=== PATIENT | female | born 1980 | race Caucasian/White ===

== ENCOUNTER 2017-03-19 03:09 | Day surgery (SDC) | payer SELFPAY ==
[~2017-03-19] VITALS: Ht 170.2 cm; Wt 104.3 kg
[~2017-03-19 03:09] MED LIST: AC500T; HYDR1TAB PO; IBP800T PO; MEPE50TA; METH4TAB PO; NITR100C3 PO; OXYC-12 PO
[2017-03-19] MEDS ORDERED: ALPR0.5T7 (03:31)
[2017-03-19] MEDS ORDERED: Naproxen (03:31)
[2017-03-19] MEDS ORDERED: Cymbalta (03:31)
[2017-03-19] MEDS ORDERED: Buspar (03:31)
[2017-03-19] MEDS ORDERED: NS IV 1000 ML 1,000 ML IV ONE (03:33)
[2017-03-19 03:39] LABS: BASOPHILS # (AUTO) 0.1 10^3/uL (0.0-0.1); BASOPHILS % (AUTO) 0 % (0-10); EOSINOPHILS # (AUTO) 0.6 10^3/uL (0.0-0.3); EOSINOPHILS % (AUTO) 4 % (0-10); LYMPHOCYTES # (AUTO) 1.7 X 10^3 (1.0-4.0); LYMPHOCYTES % (AUTO) 10 % (12-44); MEAN CORPUSCULAR HEMOGLOBIN 28 PG (25-34); MEAN CORPUSCULAR HGB CONC 33 G/DL (32-36); MEAN CORPUSCULAR VOLUME 84 FL (80-99); MEAN PLATELET VOLUME 11.3 FL (7.4-10.4); MONOCYTES # (AUTO) 1.2 X 10^3 (0.0-1.0); MONOCYTES % (AUTO) 7 % (0-12); NEUTROPHILS # (AUTO) 13.4 X 10^3 (1.8-7.8); NEUTROPHILS % (AUTO) 79 % (42-75); PLATELET COUNT 248 10^3/uL (130-400); RED BLOOD COUNT 4.87 10^6/uL (4.35-5.85); WHITE BLOOD COUNT 16.9 10^3/uL (4.3-11.0)
[2017-03-19] MEDS ORDERED: ONDANSETRON 4 MG/2 ML (SDV) Z0FRAN IVP ONE (03:45)
[2017-03-19] MEDS ORDERED: fentaNYL INJECTION 100 MCG/2 ML AMP IVP ONE ×2 (03:45→04:15)
[2017-03-19 03:58] LABS: ALANINE AMINOTRANSFERASE 20 U/L (0-55); ALBUMIN 3.7 G/DL (3.2-4.5); ANION GAP 10 MMOL/L (5-14); ASPARTATE AMINO TRANSFERASE 14 U/L (5-34); BILIRUBIN,TOTAL 0.1 MG/DL (0.1-1.0); BLOOD UREA NITROGEN 16 MG/DL (7-18); BUN/CREATININE RATIO 22; CALCIUM 9.2 MG/DL (8.5-10.1); CARBON DIOXIDE 20 MMOL/L (21-32); CHLORIDE 108 MMOL/L (98-107); CREATININE SERUM 0.74 MG/DL (0.60-1.30); GFR ESTIMATED > 60; GLUCOSE 105 MG/DL (70-105); LIPASE 27 U/L (8-78); POTASSIUM 4.2 MMOL/L (3.6-5.0); SODIUM 138 MMOL/L (135-145)
[2017-03-19 03:59] LABS: ANISOCYTOSIS SLIGHT; BAND NEUTROPHILS 2 %; BASOPHILS % (MANUAL) 0 %; EOSINOPHILS % (MANUAL) 2 %; LYMPHOCYTES % (MANUAL) 8 %; NEUTROPHILS % (MANUAL) 78 %; REACTIVE LYMPHOCYTES 6 %
--- NOTE | 2017-03-19 04:08 | ED Abdominal Pain ---
General Chief Complaint: Abdominal/GI Problems Stated Complaint: AB PAIN Nursing Triage Note: Amb to ED accompanied by . Pt c/o severe abd pain. Pain after lunch time Monday that worsened after a meal. [place] hx of constipation with opiod drug use Sepsis Screen: No Definite Risk Source of Information: Patient Exam Limitations: No Limitations History of Present Illness Time Seen By Provider: 03:20 Initial Comments This 36-year-old woman presents to the emergency room with complaints of central abdominal pressure that started yesterday morning. This is associated with nausea and a sensation of bloating. She has a history of intermittent constipation related to narcotic use. She reports having a small bowel movement today that was hard luke. She has had subjective fever as well. She took a laxative and a medication for opioid-induced constipation earlier today without benefit. Allergies and Home Medications Allergies Coded Allergies: Penicillins (Verified Allergy, Unknown, 11/25/09) Home Medications Alprazolam 0.5 Mg Tablet, #90 (Reported) Hydrocodone Bit/Acetaminophen 1 Each Tablet, 1 EACH PO Q4HR PRN, #20 Ref 0 Prescribed by: MILDRED ORO MD on 12/30/09 1750 [Buspar] , (Reported) [Cymbalta] , (Reported) [Naproxen] , (Reported) Review of Systems Constitutional: see HPI EENTM: No Symptoms Reported Respiratory: No Symptoms Reported Cardiovascular: No Symptoms Reported Gastrointestinal: See HPI Genitourinary: No Symptoms Reported Musculoskeletal: no symptoms reported Skin: no symptoms reported Psychiatric/Neurological: No Symptoms Reported Endocrine: No Symptoms Reported Hematologic/Lymphatic: No Symptoms Reported Past Jskknjp-Yvsbbe-Dqftpn Hx Patient Social History Alcohol Use: Denies Use Recreational Drug Use: No Smoking Status: Current Someday Smoker Type Used: Cigarettes Recent Foreign Travel: No Contact w/Someone Who Travel: No Recent Infectious Disease Expo: No Recent Hopitalizations: No Seasonal Allergies Seasonal Allergies: No Surgeries HX Surgeries: Yes (wisdom teeth removed) Respiratory Hx Respiratory Disorders: Yes Respiratory Disorders: Asthma Cardiovascular Hx Cardiac Disorders: No Neurological Hx Neurological Disorders: No Reproductive System Hx Reproductive Disorders: No Genitourinary Hx Genitourinary Disorders: No Gastrointestinal Hx Gastrointestinal Disorders: No Musculoskeletal Hx Musculoskeletal Disorders: Yes Musculoskeletal Disorders: Chronic Back Pain Endocrine Hx Endocrine Disorders: No HEENT HX ENT Disorders: No Cancer Hx Cancer: No Psychosocial Hx Psychiatric Problems: Yes Behavioral Health Disorders: Anxiety, Depression Blood Transfusions Hx Blood Disorders: Yes Physical Exam Vital Signs VS - Last 72 Hours, by Label 03/19/17 03:13 Temp 97.6 Pulse 70 Resp 20 B/P (MAP) 142/83 O2 Delivery Room Air Capillary Refill : Less Than 3 Seconds General Appearance: WD/WN, moderate distress HEENT: PERRL/EOMI, normal ENT inspection Respiratory: lungs clear, normal breath sounds, no respiratory distress, no accessory muscle use Cardiovascular: regular rate, rhythm, no edema, no murmur Gastrointestinal: soft, abnormal bowel sounds (decreased), tenderness (diffuse but more intense in the central abdomen) Extremities: normal inspection, no pedal edema Neurologic/Psychiatric: senior education specialist II-XII nml as tested, no motor/sensory deficits, alert, normal mood/affect, oriented x 3 Skin: normal color, warm/dry Progress/Results/Core Measures Results/Orders Lab Results Laboratory Tests Test 03/19/17 03:20 03/19/17 04:44 Range/Units White Blood Count 16.9 H 4.3-11.0 10^3/uL Red Blood Count 4.87 4.35-5.85 10^6/uL Hemoglobin 13.6 11.5-16.0 G/DL Hematocrit 41 35-52 % Mean Corpuscular Volume 84 80-99 FL Mean Corpuscular Hemoglobin 28 25-34 PG Mean Corpuscular Hemoglobin Concent 33 32-36 G/DL Red Cell Distribution Width 15.0 H 10.0-14.5 % Platelet Count 248 130-400 10^3/uL Mean Platelet Volume 11.3 H 7.4-10.4 FL Neutrophils (%) (Auto) 79 H 42-75 % Lymphocytes (%) (Auto) 10 L 12-44 % Monocytes (%) (Auto) 7 0-12 % Eosinophils (%) (Auto) 4 0-10 % Basophils (%) (Auto) 0 0-10 % Neutrophils # (Auto) 13.4 H 1.8-7.8 X 10^3 Lymphocytes # (Auto) 1.7 1.0-4.0 X 10^3 Monocytes # (Auto) 1.2 H 0.0-1.0 X 10^3 Eosinophils # (Auto) 0.6 H 0.0-0.3 10^3/uL Basophils # (Auto) 0.1 0.0-0.1 10^3/uL Neutrophils % (Manual) 78 % Lymphocytes % (Manual) 8 % Monocytes % (Manual) 4 % Eosinophils % (Manual) 2 % Basophils % (Manual) 0 % Band Neutrophils 2 % Reactive Lymphocytes 6 % Anisocytosis SLIGHT Sodium Level 138 135-145 MMOL/L Potassium Level 4.2 3.6-5.0 MMOL/L Chloride Level 108 H 98-107 MMOL/L Carbon Dioxide Level 20 L 21-32 MMOL/L Anion Gap 10 5-14 MMOL/L Blood Urea Nitrogen 16 7-18 MG/DL Creatinine 0.74 0.60-1.30 MG/DL Estimat Glomerular Filtration Rate > 60 BUN/Creatinine Ratio 22 Glucose Level 105 70-105 MG/DL Calcium Level 9.2 8.5-10.1 MG/DL Total Bilirubin 0.1 0.1-1.0 MG/DL Aspartate Amino Transf (AST/SGOT) 14 5-34 U/L Alanine Aminotransferase (ALT/SGPT) 20 0-55 U/L Alkaline Phosphatase 65 40-136 U/L Total Protein 7.0 6.4-8.2 G/DL Albumin 3.7 3.2-4.5 G/DL Lipase 27 8-78 U/L Serum Test, Qualitative NEGATIVE NEGATIVE Urine Color YELLOW Urine Clarity CLEAR Urine pH 7 5-9 Urine Specific [place] 1.005 L 1.016-1.022 Urine Protein NEGATIVE NEGATIVE Urine Glucose (UA) NEGATIVE NEGATIVE Urine Ketones NEGATIVE NEGATIVE Urine Nitrite NEGATIVE NEGATIVE Urine Bilirubin NEGATIVE NEGATIVE Urine Urobilinogen NORMAL NORMAL MG/DL Urine Leukocyte Esterase NEGATIVE NEGATIVE Urine RBC (Auto) NEGATIVE NEGATIVE Urine RBC NONE /HPF Urine WBC RARE /HPF Urine Squamous Epithelial Cells 5-10 /HPF Urine Crystals NONE /LPF Urine Bacteria TRACE /HPF Urine Casts NONE /LPF Urine Mucus NEGATIVE /LPF Urine Culture Indicated NO My Orders Orders - BRAIN MACKENZIE MD Ua Culture If Indicated (03/19/17 03:21) Cbc With Automated Diff (03/19/17 03:31) Comprehensive Metabolic Panel (03/19/17 03:31) Hcg,Qualitative Serum (03/19/17 03:31) Lipase (03/19/17 03:31) Fentanyl Injection (Sublimaze Injection (03/19/17 03:45) Ondansetron Injection (Zofran Injectio (03/19/17 03:45) Saline Lock/Iv-Start (03/19/17 03:33) Ns Iv 1000 Ml (Sodium Chloride 0.9%) (03/19/17 03:33) Manual Differential (03/19/17 03:20) Ct Abdomen/Pelvis W (03/19/17 04:00) Fentanyl Injection (Sublimaze Injection (03/19/17 04:15) Iohexol Injection (Omnipaque 350 Mg/Ml 1 (03/19/17 04:30) Ns (Ivpb) (Sodium Chloride 0.9% Ivpb Bag (03/19/17 04:30) Levofloxacin 500 Mg/100 Ml Iv (Levaquin (03/19/17 05:15) Morphine Injection (Morphine Injection (03/19/17 05:15) Medications Given in ED Current Medications Medications Dose Ordered Sig/Brielle Route Start Time Stop Time Status Last Admin Dose Admin Fentanyl Citrate 50 mcg ONCE ONCE IVP 03/19/17 03:45 03/19/17 03:46 DC 03/19/17 03:41 50 MCG Fentanyl Citrate 50 mcg ONCE ONCE IVP 03/19/17 04:15 03/19/17 04:16 DC 03/19/17 04:08 50 MCG Iohexol 100 ml ONCE ONCE IV 03/19/17 04:30 03/19/17 04:31 DC 03/19/17 04:30 100 ML Ondansetron HCl 8 mg ONCE ONCE IVP 03/19/17 03:45 03/19/17 03:46 DC 03/19/17 03:41 8 MG Sodium Chloride 100 ml ONCE ONCE IV 03/19/17 04:30 03/19/17 04:31 DC 03/19/17 04:30 80 ML Sodium Chloride 1,000 ml @ 0 mls/hr Q0M ONCE IV 03/19/17 03:33 03/19/17 03:35 DC 03/19/17 03:41 999 MLS/HR Vital Signs/I&O Vital Sign - Last 12Hours 03/19/17 03:13 Temp 97.6 Pulse 70 Resp 20 B/P (MAP) 142/83 O2 Delivery Room Air Blood Pressure Mean: 102 Progress Note #1: Time: 04:03 Progress Note Patient received Zofran 8 mg and fentanyl 50 g by IV route. She still has some significant pain. A repeat dose of fentanyl was ordered. Nausea is now controlled. Labs have been reviewed and the significant leukocytosis was noted. CT of the abdomen and pelvis with contrast was ordered. Progress Note #2: Time: 05:00 Progress Note Appendicitis was identified on CT scan. Patient has rebounding pain. Morphine was ordered. Case was discussed with Dr. Ashby would like antibiotics started and patient admitted with anticipated appendectomy later this morning. Levaquin and Flagyl were selected as patient has a penicillin allergy. Diagnostic Imaging Diagonstic Imaging: CT Plain Films/CT/US/NM/MRI: abdomen, pelvis Comments CT abdomen and pelvis viewed by me. Stat rad report reviewed. Findings most consistent with acute appendicitis. Departure Communication Time/Spoke to Admitting Phy: 05:[address] Ashby Impression Impression: Primary Impression: Acute appendicitis Qualified Codes: K35.2 - Acute appendicitis with generalized peritonitis Additional Impressions: Abdominal pain Qualified Codes: R10.84 - Generalized abdominal pain Nausea Disposition: ADMITTED INPATIENT Condition: Improved Decision to Admit Reason: Admit from ER (General) Decision to Admit/Date: March 19, 2017 Time/Decision to Admit Time: 04:55 Departure-Patient Inst. Referrals: HUBERT MCKEON MD (PCP) Primary Care Physician LUCI CLIFTON MD (Family) Primary Care Physician BRAIN MACKENZIE MD March 19, 2017 04:08
[2017-03-19] MEDS ORDERED: NS 100 ML (IVPB) BAG IV ONE (04:30)
[2017-03-19] MEDS ORDERED: IOHEXOL 350 MG/ML 100 ML (OMNIPAQUE 350) VIAL IV ONE (04:30)
[2017-03-19 04:53] LABS: BILIRUBIN,URINE NEGATIVE (NEGATIVE); KETONES,URINE NEGATIVE (NEGATIVE); LEUKOCYTE ESTERASE ,URINE NEGATIVE (NEGATIVE); NITRITE,URINE NEGATIVE (NEGATIVE); PH,URINE 7 (5-9); PROTEIN,URINE NEGATIVE (NEGATIVE); UROBILINOGEN,URINE NORMAL (NORMAL)
[2017-03-19 04:59] LABS: WBC,URINE RARE /HPF
[2017-03-19] MEDS ORDERED: morphine INJ 10 MG/ML 1ML (SYR OR VIAL) IVP ONE (05:15)
[2017-03-19] MEDS ORDERED: LEVOFLOXACIN 500 MG/100 ML IV 100 ML IV ONE (05:15)
[2017-03-19] MEDS ORDERED: NS IV 1000 ML 1,000 ML ONE ×2 (06:19→08:01)
[2017-03-19] MEDS ORDERED: metroNIDAZOLE 500MG/100ML IVPB 100 ML ONE (06:19)
[2017-03-19 06:41] VITALS: BP 135/85
[2017-03-19] MEDS ORDERED: BUP/EPI 0.25% 1:200,000 (MARCAINE) 30 ML VIAL ONE (06:48)
--- NOTE | 2017-03-19 06:50 | Diagnostic Imaging Report ---
PROCEDURE: CT abdomen and pelvis with contrast. TECHNIQUE: Multiple contiguous axial images were obtained through the abdomen and pelvis after administration of intravenous contrast. INDICATION: Postprandial pain with no priors. The appendix arises off the medial aspect of the cecum and is oriented inferiorly. It is dilated and shows intraluminal appendicoliths. There is edema and infiltration of the periappendiceal fat. Its maximal transverse diameter is 13 mm. The appearance is consistent with acute appendicitis. Its distal tip abuts the right lateral wall of the normal-appearing urinary bladder. The liver, spleen, adrenals, pancreas, gallbladder, bile ducts all appeared normal. There is no bowel obstruction. There is no free air. No appreciable free fluid. No abscess. No other focal inflammatory process. No other acute findings. IMPRESSION: Dilated and inflamed appendix with intra-luminal appendicoliths. No free fluid or free air. No findings of a transmural perforation and no resultant bowel obstruction. Findings consistent with acute appendicitis. No other acute findings. I agree with the preliminary. Dictated by: Dictated on workstation # [id number]
[2017-03-19] MEDS ORDERED: morphine INJ 10 MG/ML 1ML (SYR OR VIAL) IVP PRN (07:00)
[2017-03-19] MEDS ORDERED: NS IV 1000 ML 1,000 ML IV SCH (07:00)
[2017-03-19] MEDS ORDERED: LIDOCAINE PF 2% 10 ML (XYLOCAINE) AMP ONE (07:07)
[2017-03-19] MEDS ORDERED: proPOfol 200 MG/20 ML (DIPRIVAN) VIAL IV ONE (07:07)
[2017-03-19] MEDS ORDERED: ROCURONIUM 50 MG/5 ML (ZEMURON) VIAL IV ONE (07:07)
[2017-03-19] MEDS ORDERED: fentaNYL INJECTION 100 MCG/2 ML AMP ONE (07:08)
[2017-03-19] MEDS ORDERED: SEVOFLURANE (ULTANE) 15 ML INHAL SOLN ONE ×2 (07:08→08:02)
[2017-03-19] MEDS ORDERED: LACTATED RINGERS 0 ML IV ONE (07:08)
[2017-03-19] MEDS ORDERED: MIDAZOLAM 2 MG/2 ML (VERSED) VIAL ONE (07:08)
--- NOTE | 2017-03-19 07:09 | History & Physicial ---
History of Present Illness History of Present Illness Reason for visit/HPI RLQ pain for 2 days; Exam and CT show acute appendicitis Date of Admission March 19, 2017 at 5:13 am I consulted on this patient on 03/19/17 07:04 Attending Physician Dolores Kelsey MD Admitting Physician Mj Yan MD Consult Allergies and Home Medications Allergies Coded Allergies: Penicillins (Verified Allergy, Unknown, 11/25/09) Home Medications Alprazolam 0.5 Mg Tablet, #90 (Reported) Hydrocodone Bit/Acetaminophen 1 Each Tablet, 1 EACH PO Q4HR PRN, #20 Ref 0 Prescribed by: MILDRED ORO MD on 12/30/09 1750 [Buspar] , (Reported) [Cymbalta] , (Reported) [Naproxen] , (Reported) Past Irzkofv-Noabiz-Obqzuc Hx Patient Social History Employed/Student: self-employed Alcohol Use: Denies Use Recreational Drug Use: No Smoking Status: Current Someday Smoker Type Used: Cigarettes Physical Abuse Screen: No Sexual Abuse: No Recent Foreign Travel: No Contact w/other who traveled: No Recent Hopitalizations: No Recent Infectious Disease Expo: No Seasonal Allergies Seasonal Allergies: Yes Surgeries HX Surgeries: Yes (wisdom teeth removed) Respiratory Hx Respiratory Disorders: Yes Cardiovascular Hx Cardiovascular Disorders: No Neurological Hx Neurological Disorders: No Reproductive System Hx Reproductive Disorders: No Sexually Transmitted Disease: No HIV/AIDS: No Genitourinary Hx Genitourinary Disorders: No Gastrointestinal Hx Gastrointestinal Disorders: No Musculoskeletal Hx Musculoskeletal Disorders: Yes Musculoskeletal Disorders: Chronic Back Pain Endocrine Hx Endocrine Disorders: No HEENT HX ENT Disorders: No Cancer Hx Cancer: No Psychosocial Hx Psychiatric Problems: Yes Behavioral Health Disorders: Anxiety, Depression Blood Transfusions Hx Blood Disorders: Yes Adverse Reaction to a Blood Tr: No Constitutional: malaise EENTM: no symptoms reported Respiratory: no symptoms reported Cardiovascular: no symptoms reported Gastrointestinal: RUQ, RLQ, abdominal pain (RLQ), loss of appetite, nausea Genitourinary: no symptoms reported : No Musculoskeletal: back pain Skin: no symptoms reported Psychiatric/Neurological: No Symptoms Reported Physical Exam Vital Signs Vital Sign - Last 12Hours 03/19/17 03/19/17 03:13 05:37 Temp 97.6 Pulse 70 Resp 20 B/P (MAP) 142/83 Pulse Ox 95 O2 Delivery Room Air Capillary Refill : Less Than 3 Seconds General Appearance: Mild Distress HEENT: TMs Normal Neck: Normal Inspection Respiratory: Lungs Clear Cardiovascular: Regular Rate, Rhythm Gastrointestinal: Tenderness Rectal: Deferred Back: Normal Inspection Extremity: Normal Capillary Refill Neurologic/Psychiatric: Alert, Oriented x3 Skin: Warm/Dry Comments Severe tenderness- RLQ Assessment/Plan Assessment and Plan Acute appendicitis, for laparoscopic appendectomy. Expected recovery, wound infection, intra-abdominal abscess etc discussed in detail.Willing to proceed Problems: Admission Diagnosis Acute appendicitis Clinical Quality Measures DVT/VTE Risk/Contraindication: Risk Factor Score Per Nursin RFS Level Per Nursing on Admit: 2=Moderate DOLORES KELSEY MD March 19, 2017 7:09 am
[2017-03-19] MEDS ORDERED: NICOTINE 21 MG (NICODERM) PATCH TD PRN (07:15)
[2017-03-19] MEDS ORDERED: CLINDAMYCIN INJECTION 900 MG in NS (IVPB) 50 ML IV ONE (07:15)
[2017-03-19] MEDS ORDERED: ONDANSETRON 4 MG/2 ML (SDV) Z0FRAN IV PRN ×2 (07:15→08:15)
[2017-03-19] MEDS ORDERED: morphine INJ 10 MG/ML 1ML (SYR OR VIAL) IV PRN (07:15)
[2017-03-19] MEDS ORDERED: metroNIDAZOLE 500MG/100ML IVPB 100 ML IV ONE (07:15)
[2017-03-19] MEDS: LACTATED RINGERS 1,000 ML IV PRN ×2 (07:21→09:03)
[2017-03-19] MEDS ORDERED: CLINDAMYCIN 600 MG/4ML (CLEOCIN) VIAL IV ONE (07:45)
[2017-03-19] MEDS ORDERED: GLYCOPYRROLATE 0.2 MG/ML (ROBINUL) 2 ML VIAL ONE (08:02)
[2017-03-19] MEDS ORDERED: ONDANSETRON 4 MG/2 ML (SDV) Z0FRAN ONE (08:02)
[2017-03-19] MEDS ORDERED: DEXAMETHASONE PF 10 MG/ML (DECADRON) VIAL ONE (08:02)
[2017-03-19] MEDS ORDERED: NEOSTIGMINE (BLOXIVERZ ) 1 MG/1ML 10 ML VIAL ONE (08:02)
[2017-03-19] MEDS ORDERED: KETOROLAC 30 MG/ML VIAL ONE (08:05)
--- NOTE | 2017-03-19 08:07 | Progress Note-Pre Operative ---
Pre-Operative Progress Note H&P Reviewed The H&P was reviewed, patient examined and no changes noted. Date H&P Reviewed: March 19, 2017 Time H&P Reviewed: 06:54 Pre-Operative Diagnosis: Acute appendicitis DOLORES KELSEY MD March 19, 2017 8:07 am
--- NOTE | 2017-03-19 08:07 | Progress Note-Post Operative ---
Post-Operative Progess Note Surgeon (s)/Sales Rep (s) Surgeon DOLORES KELSEY MD Sales Rep: Not applicable Pre-Operative Diagnosis Acute appendicitis Post-Operative Diagnosis Acute gangrenous appendicitis Procedure & Operative Findings Date of Procedure 03/19/17 Procedure Performed/Findings laparoscopic appendectomy Anesthesia Type Gen. Estimated Blood Loss Estimated blood loss (mL): Minimal Specimens/Packing Specimens Removed appendix DOLORES KELSEY MD March 19, 2017 8:07 am
[2017-03-19] MEDS ORDERED: HYDR-3812 PO (08:11)
--- NOTE | 2017-03-19 08:12 | Discharge Inst-Simple/Standard ---
Discharge Inst-Standard Discharge Medications New, Converted or Re-Newed RX: RX on Chart Patient Instructions/Follow Up Plan of Care/Instructions/FU: Dressings off in a.m. Incentive spirometry. Follow-up in a week Activity as Tolerated: Yes Discharge Diet: No Restrictions DOLORES KELSEY MD March 19, 2017 8:12 am
[2017-03-19] MEDS ORDERED: MEPERIDINE (DEMEROL) INJ 50 MG/ML ONE (08:13)
[2017-03-19] MEDS ORDERED: morphine INJ 10 MG/ML 1ML (SYR OR VIAL) ONE (08:13)
[2017-03-19] MEDS ORDERED: fentaNYL INJECTION 100 MCG/2 ML AMP IV PRN (08:15)
--- NOTE | 2017-03-19 08:40 | OPERATIVE REPORT ---
DATE OF SERVICE: 03/19/2017 PREOPERATIVE DIAGNOSIS: Acute appendicitis. POSTOPERATIVE DIAGNOSIS: Acute gangrenous appendicitis. OPERATION: Laparoscopic appendectomy. SURGEON: Dr. Kelsey. ANESTHESIA: General anesthesia. BLOOD LOSS: Minimal. FLUIDS: 1 L of crystalloids. TYPE OF WOUND: Type 3 (contaminated wound). INDICATIONS FOR PROCEDURE: The lady presented with features of acute appendicitis confirmed on CT scan. She was offered prompt laparoscopic appendectomy. Informed consent was obtained after reviewing the operating details and the complications of wound infection and intraabdominal abscess. DESCRIPTION OF PROCEDURE: She was placed supine on the operating room table and general anesthesia induced using an endotracheal tube, 600 mg of clindamycin and 500 mg of Flagyl were administered intravenously as prophylaxis against wound infection. Sequential compression devices were placed around her legs to minimize the risk of venous thrombosis. Abdomen was prepared and draped in the usual sterile manner. A supraumbilical incision was made and the linea alba incised vertically. A John cannula was placed and carbon dioxide insufflated to an intraabdominal pressure of 15 mmHg. Anatomy was visualized using a 30 degree laparoscope. Appendix was gangrenous and found in the retrocecal position, the tip extending along the lateral pelvic wall. Under direct view, I placed a 5 mm trocar over the right upper quadrant, followed by a 12 mm trocar over the left lower quadrant. The patient was then turned into Trendelenburg position with the right side tilted up. Mesoappendix was mobilized using Harmonic scalpel and the base of the appendix transected using an Endo-LUBNA vascular stapler. Hemostasis along the staple line was satisfactory. The area was then irrigated with warm saline and the appendix placed in an EndoCatch bag to be removed via the supraumbilical trocar site. The fascia over this incision was closed using #1 Vicryl. Skin was closed using 4-0 Vicryl in a subcuticular fashion. 0.25% Marcaine with epinephrine was infiltrated along the incisions, both preemptively and at the conclusion of the operation. She tolerated the procedure well, was extubated in the operating room and taken to the recovery room in a stable condition. [place], sponges, and instruments were correct at the end of the operation. Job ID: [id number] DocumentID: [id number] Dictated Date: 03/19/2017 08:05:24 Mangle Tender Cloth Date: 03/19/2017 08:39:41 Dictated By: DOLORES KELSEY MD MTDD
[2017-03-19 09:25] VITALS: BP 110/59
[2017-03-19] MEDS: LACTATED RINGERS 1,000 ML IV SCH ×2 (09:25→16:07)
[2017-03-19 12:00] VITALS: BP 106/51
[2017-03-19] MEDS ORDERED: metroNIDAZOLE 500 MG/100 ML IVPB (PRE-MIX) IV SCH (12:00)
[2017-03-19] MEDS: ceFAZolin 1 GM/NS 50 ML IVPB IV SCH ×4 (12:30→21:37)
[2017-03-19] MEDS: HYDROcodone/APAP 5 MG/325 MG (LORTAB) TAB PO PRN ×2 (12:32→20:14)
[2017-03-19] MEDS: metroNIDAZOLE 500MG/100ML IVPB 100 ML IV SCH ×2 (13:33→20:14)
[2017-03-19 16:09] VITALS: BP 128/71
[2017-03-19 19:33] VITALS: BP 123/60
[2017-03-19] MEDS: KETOROLAC 15 MG/ML VIAL IV SCH (21:37)
[2017-03-20] VITALS: BP 129/62
[2017-03-20 04:00] VITALS: BP 116/60
[2017-03-20] MEDS: KETOROLAC 15 MG/ML VIAL IV SCH (06:15)
[2017-03-20] MEDS: metroNIDAZOLE 500MG/100ML IVPB 100 ML IV SCH (06:15)
[2017-03-20] MEDS: ceFAZolin 1 GM/NS 50 ML IVPB IV SCH ×2 (07:05)
[2017-03-20 07:40] VITALS: BP 112/59
[2017-03-20] MEDS: HYDROcodone/APAP 5 MG/325 MG (LORTAB) TAB PO PRN (07:57)
[2017-03-20] MEDS ORDERED: NICOTINE PATCH REMOVAL TP SCH (09:00)
[2017-03-20] MEDS ORDERED: LEVOFLOXACIN 500 MG/D5W 100 ML (PRE-MIX) IV SCH (09:00)
--- NOTE | 2017-03-20 09:18 | Progress Note-Standard ---
Standard Progress Note Progress Notes/Assess & Plan Progress/Assessment & Plan 03/20/17:doing well. Discharge home. Final Diagnosis acute gangrenous appendicitis DOLORES KELSEY MD March 20, 2017 9:18 am
[2017-03-20 09:50] VITALS: BP 112/59
== END 2017-03-20 09:50 | disposition home or self-care (01) ==
LOC: EDUNIT# 03:09 → ER 03:11 → 4TH 05:13 → UNDOADMOB 05:13 → SDC 05:55 → 4TH 05:55 → ENPENDDIS 03-20 09:00 → UNDODISOB 03-20 09:50 → SDC 03-20 09:50
PROVIDERS: ATTEND Surgery
DX: K35.80 Unspecified acute appendicitis (principal); F17.210 Nicotine dependence, cigarettes, uncomplicated; F41.9 Anxiety disorder, unspecified; F32.9 Major depressive disorder, single episode, unspecified; J45.909 Unspecified asthma, uncomplicated; E66.9 Obesity, unspecified; Z68.36 Body mass index [BMI] 36.0-36.9, adult; Z79.899 Other long term (current) drug therapy
CPT/HCPCS: 36415; 74177; 80053; 81000; 83690; 84703; 85007; 85027; 87081; 88304; 94664; 96361; 96365; 96375

== ENCOUNTER 2018-07-04 21:14 | Emergency (ER) | payer SELFPAY ==
[~2018-07-04 21:14] MED LIST changes: +ACHD5005 PO; +ALPR0.5T7; +Buspar; +Cymbalta; +Naproxen
--- OUTSIDE RECORDS SUMMARY | 2018-07-04 21:19 | XMS REPORT ---
Author Author LYDIA SPENCE [facility] Address [address] [place] [address] Care Team Providers Care Medical Device Sales Name Role Phone TERRIE SPENCETA Unavailable PROBLEMS Type Condition ICD9-CM Code EXS03-CB Code Onset Dates Condition Status SNOMED Code Problem Morbid (severe) obesity due to excess calories E66.01 Active 180215257 Problem Primary insomnia F51.01 Active 4156817 Problem Major depressive disorder, single episode, moderate F32.1 Active 73671711 Problem Dysthymia F34.1 Active 47923306 ALLERGIES Substance Reaction Event Type Date Status Penicillin G Sodium Unknown Drug Allergy Apr, Active ENCOUNTERS Encounter Location Date Diagnosis [place] [id number] [place] [phone] May, Primary insomnia F51.01 and Major depressive disorder, single episode, moderate F32.1 [place] [id number] [place] [address] Apr, Major depressive disorder, single episode, moderate F32.1 [place] [id number] [place] [address] Mar, BMI 40.0-44.9, adult Z68.41 ; Major depressive disorder, single episode, moderate F32.1 ; Primary insomnia F51.01 ; Morbid (severe) obesity due to excess calories E66.01 and Encounter to establish care Z76.89 [place] [id number] [place] [address] Mar, Dysthymia F34.1 [place] [id number] [place] [address] February, Major depressive disorder, single episode, moderate F32.1 [place] [id number] [address] February, [facility] [address] [facility] [id number] [address] Jan, [facility] [address] [facility] [id number] [phone] Jan, Dysthymia F34.1 ; BMI 40.0-44.9, adult Z68.41 and Fatigue, unspecified type R53.83 [facility] [address] [facility] [id number] [address] Nov, Strain of lumbar paraspinous muscle, initial encounter S39.012A and BMI 40.0-44.9, adult Z68.41 IMMUNIZATIONS No Known Immunizations SOCIAL HISTORY Never Assessed REASON FOR VISIT Depression f/u-awoods PLAN OF CARE Activity Details Follow Up 6 Months Reason:depression VITAL SIGNS Height 67 in 2018 Weight 251.5 lbs 2018 Temperature 98.9 degrees Fahrenheit 2018 Heart Rate 67 bpm 2018 Respiratory Rate 18 2018 BMI 39.39 kg/m2 2018 Blood pressure systolic 118 mmHg 2018 Blood pressure diastolic 72 mmHg 2018 MEDICATIONS Medication Instructions Dosage Frequency Start Date End Date Duration Status Naproxen 250 MG Orally Twice a day 1 tablet with food or milk 12h Active Prozac 40 mg Orally Once a day 1 capsule in the morning 24h 30 days Active Trazodone HCl 50 MG Orally Once a day 1 tablet at bedtime as needed 24h Active RESULTS No Results PROCEDURES No Known procedures INSTRUCTIONS MEDICATIONS ADMINISTERED No Known Medications MEDICAL (GENERAL) HISTORY Type Description Date Medical History Anxiety Medical History Severe depression Surgical History appendectomy 02/2017
--- OUTSIDE RECORDS SUMMARY | 2018-07-04 21:19 | XMS REPORT ---
Author Author LESLEY ALVARADO Organization [facility] Address [address] [place] [address] Care Team Providers Care Raveler Name Role Phone LESLEY ALVARADO Unavailable PROBLEMS Type Condition ICD9-CM Code SSU08-SY Code Onset Dates Condition Status SNOMED Code Problem Morbid (severe) obesity due to excess calories E66.01 Active 226662085 Problem Primary insomnia F51.01 Active 7319974 Problem Major depressive disorder, single episode, moderate F32.1 Active 14765391 Problem Dysthymia F34.1 Active 99732300 ALLERGIES No Information ENCOUNTERS Encounter Location Date Diagnosis [place] [id number] [id number] [place] [address] Apr, Major depressive disorder, single episode, moderate F32.1 [facility] [id number] [place] [address] Mar, BMI 40.0-44.9, adult Z68.41 ; Major depressive disorder, single episode, moderate F32.1 ; Primary insomnia F51.01 ; Morbid (severe) obesity due to excess calories E66.01 and Encounter to establish care Z76.89 [place] [id number] [place] [address] Mar, Dysthymia F34.1 [facility] [id number] [place] [address] February, Major depressive disorder, single episode, moderate F32.1 [facility] [id number] [place] [address] February, [facility] [id number] [place] [phone] Jan, [place] [address] [place] [address] Jan, Dysthymia F34.1 ; BMI 40.0-44.9, adult Z68.41 and Fatigue, unspecified type R53.83 [facility] [address] [facility] [id number] [place] [address] Nov, Strain of lumbar paraspinous muscle, initial encounter S39.012A and BMI 40.0-44.9, adult Z68.41 IMMUNIZATIONS No Known Immunizations SOCIAL HISTORY Never Assessed REASON FOR VISIT Depression. PLAN OF CARE Activity Details Follow Up next available Reason:depresison VITAL SIGNS MEDICATIONS Medication Instructions Dosage Frequency Start Date End Date Duration Status Trazodone HCl 50 MG Orally Once a day 1 tablet at bedtime as needed 24h Active Prozac 20 mg Orally Once a day 1 capsule in the morning 24h Jan, 30 day(s) Unknown Naproxen 250 MG Orally Twice a day 1 tablet with food or milk 12h Active RESULTS No Results PROCEDURES Procedure Date Ordered Result Body Site Psych diagnostic evaluation, established patient February 20, 2018 INSTRUCTIONS MEDICATIONS ADMINISTERED No Known Medications MEDICAL (GENERAL) HISTORY Type Description Date Medical History Anxiety Medical History Severe depression Surgical History appendectomy 02/2017
--- OUTSIDE RECORDS SUMMARY | 2018-07-04 21:19 | XMS REPORT ---
Author Author LYDIA SPENCE [facility] Address [address] [place] [address] Care Team Providers Care Spring Repairer Helper Hand Name Role Phone TERRIE SPENCETA Unavailable PROBLEMS Type Condition ICD9-CM Code ECZ85-CY Code Onset Dates Condition Status SNOMED Code Problem Morbid (severe) obesity due to excess calories E66.01 Active 947100289 Problem Primary insomnia F51.01 Active 4940664 Problem Major depressive disorder, single episode, moderate F32.1 Active 10992973 Problem Dysthymia F34.1 Active 92297384 ALLERGIES Substance Reaction Event Type Date Status Penicillin G Sodium Unknown Drug Allergy Mar, Active ENCOUNTERS Encounter Location Date Diagnosis [place] [id number] [place] [address] May, Primary insomnia F51.01 and Major depressive disorder, single episode, moderate F32.1 [place] [id number] [place] [address] 35823[address] 6074 Apr, Major depressive disorder, single episode, moderate F32.1 [place] [id number] [place] [address]38[address] Mar, BMI 40.0-44.9, adult Z68.41 ; Major depressive disorder, single episode, moderate F32.1 ; Primary insomnia F51.01 ; Morbid (severe) obesity due to excess calories E66.01 and Encounter to establish care Z76.89 [place] [id number] [place] [address] 43628[address] 2761 Mar, Dysthymia F34.1 [place] [id number] [place] [address] 55037[address] 9071 February, Major depressive disorder, single episode, moderate F32.1 [place] [id number] [address] February, [facility] [address] [facility] [id number] [address] Jan, [facility] [address] [facility] [id number] [address] Jan, Dysthymia F34.1 ; BMI 40.0-44.9, adult Z68.41 and Fatigue, unspecified type R53.83 [facility] [address] [facility] [id number], [place] [address] Nov, Strain of lumbar paraspinous muscle, initial encounter S39.012A and BMI 40.0-44.9, adult Z68.41 IMMUNIZATIONS No Known Immunizations SOCIAL HISTORY Never Assessed REASON FOR VISIT Establish [facility], Would like to discuss weight loss options. PLAN OF CARE Activity Details Follow Up 4 Weeks/ needs WWE Reason:depression VITAL SIGNS Height 67 in 2018-03-30 Weight 259.2 lbs 2018-03-30 Temperature 98.5 degrees Fahrenheit 2018-03-30 Heart Rate 62 bpm 2018-03-30 Respiratory Rate 18 2018-03-30 BMI 40.59 kg/m2 2018-03-30 Blood pressure systolic 105 mmHg 2018-03-30 Blood pressure diastolic 65 mmHg 2018-03-30 MEDICATIONS Medication Instructions Dosage Frequency Start Date End Date Duration Status Prozac 40 MG Orally Once a day 1 capsule in the morning 24h Active Naproxen 250 MG Orally Twice a day 1 tablet with food or milk 12h Active Trazodone HCl 50 MG Orally Once a day 1 tablet at bedtime as needed 24h Active RESULTS No Results PROCEDURES No Known procedures INSTRUCTIONS MEDICATIONS ADMINISTERED No Known Medications MEDICAL (GENERAL) HISTORY Type Description Date Medical History Anxiety Medical History Severe depression Surgical History appendectomy 02/2017
--- OUTSIDE RECORDS SUMMARY | 2018-07-04 21:19 | XMS REPORT ---
Author Author LYDIA SPENCE [facility] Address [address] [place] [address] Care Team Providers Care Non Emergency Services Ambulance Driver Name Role Phone TERRIE SPENCETA Unavailable PROBLEMS Type Condition ICD9-CM Code KEG65-CB Code Onset Dates Condition Status SNOMED Code Problem Morbid (severe) obesity due to excess calories E66.01 Active 401059349 Problem Primary insomnia F51.01 Active 7649175 Problem Major depressive disorder, single episode, moderate F32.1 Active 86279307 Problem Dysthymia F34.1 Active 80393584 ALLERGIES Substance Reaction Event Type Date Status Penicillin G Sodium Unknown Drug Allergy Jan, Active ENCOUNTERS Encounter Location Date Diagnosis [place] [id number] [place] [address] Apr, Major depressive disorder, single episode, moderate F32.1 [place] [id number] [place] [address] 21470- 39[address] Mar, BMI 40.0-44.9, adult Z68.41 ; Major depressive disorder, single episode, moderate F32.1 ; Primary insomnia F51.01 ; Morbid (severe) obesity due to excess calories E66.01 and Encounter to establish care Z76.89 [facility] [id number] [place] [address] 55561- 9748 Mar, Dysthymia F34.1 [place] [id number] [place] [address] 54721- 28[address] February, Major depressive disorder, single episode, moderate F32.1 [place] [id number] [place] [address] 06086- 7767 February, [place] [id number] [place] [address] 76688- 8886 Jan, [facility] [address] [facility] [id number] [place] [address] Jan, Dysthymia F34.1 ; BMI 40.0-44.9, adult Z68.41 and Fatigue, unspecified type R53.83 [facility] [address] [facility] [id number] [place] [address] Nov, Strain of lumbar paraspinous muscle, initial encounter S39.012A and BMI 40.0-44.9, adult Z68.41 IMMUNIZATIONS No Known Immunizations SOCIAL HISTORY Never Assessed REASON FOR VISIT will discuss with provider, patient would not go into detail with waitstaff captain about what was going on, Pt states she overall doesnt feel well, no energy x2-3 weeks, feels like a lot of recent weight gain-Kanchan PLAN OF CARE Activity Details Follow Up 4 Weeks Reason:depression VITAL SIGNS Height 67 in 2018-02-19 Weight 263.2 lbs 2018-02-19 Temperature 99.0 degrees Fahrenheit 2018-02-19 Heart Rate 88 bpm 2018-02-19 Respiratory Rate 20 2018-02-19 Oximetry 97 % 2018-02-19 BMI 41.22 kg/m2 2018-02-19 Blood pressure systolic 118 mmHg 2018-02-19 Blood pressure diastolic 68 mmHg 2018-02-19 MEDICATIONS Medication Instructions Dosage Frequency Start Date End Date Duration Status Trazodone HCl 50 MG Orally Once a day 1 tablet at bedtime as needed 24h Active Naproxen 250 MG Orally Twice a day 1 tablet with food or milk 12h Active Prozac 20 mg Orally Once a day 1 capsule in the morning 24h Jan, 30 day(s) Active RESULTS No Results PROCEDURES Procedure Date Ordered Result Body Site COMPLETE CBC W/AUTO DIFF WBC February 19, 2018 COMPREHEN METABOLIC PANEL February 19, 2018 Hemoglobin Test Send Out 0 dollar February 19, 2018 ASSAY THYROID STIM HORMONE February 19, 2018 VENIPUNCT, ROUTINE* February 19, 2018 LIPID PANEL February 19, 2018 INSTRUCTIONS MEDICATIONS ADMINISTERED No Known Medications MEDICAL (GENERAL) HISTORY Type Description Date Medical History Anxiety Medical History Severe depression Surgical History appendectomy 02/2017
--- OUTSIDE RECORDS SUMMARY | 2018-07-04 21:19 | XMS REPORT ---
Author Author LYDIA SPENCE Organization [facility] Address [address] [place] [address] Care Team Providers Care Medicaid Billing Specialist Name Role Phone TERRIE SPENCETA Unavailable PROBLEMS Type Condition ICD9-CM Code KRK21-AR Code Onset Dates Condition Status SNOMED Code Problem Morbid (severe) obesity due to excess calories E66.01 Active 411214462 Problem Primary insomnia F51.01 Active 0627912 Problem Major depressive disorder, single episode, moderate F32.1 Active 53108426 Problem Dysthymia F34.1 Active 32318977 ALLERGIES No Information ENCOUNTERS Encounter Location Date Diagnosis [facility] [address] [place] [address] 93440- 1760 Apr, Major depressive disorder, single episode, moderate F32.1 [facility] [id number] [place] [address] 70236- 3441 Mar, BMI 40.0-44.9, adult Z68.41 ; Major depressive disorder, single episode, moderate F32.1 ; Primary insomnia F51.01 ; Morbid (severe) obesity due to excess calories E66.01 and Encounter to establish care Z76.89 [facility] [address] [place] [address] 92522- [address]90 Mar, Dysthymia F34.1 [facility] [id number] [place] [address] 40547- 55[address] February, Major depressive disorder, single episode, moderate F32.1 [facility] [id number] [place] [address] 60028- 7214 February, [facility] [id number], [place] [address] Jan, [place] [address] [place] [address] Jan, Dysthymia F34.1 ; BMI 40.0-44.9, adult Z68.41 and Fatigue, unspecified type R53.83 [facility] [address] [facility] [id number] [place] [address] Nov, Strain of lumbar paraspinous muscle, initial encounter S39.012A and BMI 40.0-44.9, adult Z68.41 IMMUNIZATIONS No Known Immunizations SOCIAL HISTORY Never Assessed REASON FOR VISIT Refill request PLAN OF CARE VITAL SIGNS MEDICATIONS Medication Instructions Dosage Frequency Start Date End Date Duration Status Prozac 20 mg Orally Once a day 1 capsule in the morning 24h Jan, 30 day(s) Active RESULTS No Results PROCEDURES No Known procedures INSTRUCTIONS MEDICATIONS ADMINISTERED No Known Medications MEDICAL (GENERAL) HISTORY Type Description Date Medical History Anxiety Medical History Severe depression Surgical History appendectomy 02/2017
--- OUTSIDE RECORDS SUMMARY | 2018-07-04 21:20 | XMS REPORT ---
Author Author LYDIA SPENCE Organization [facility] Address [address] [place] [address] Care Team Providers Care Air Traffic Control Specialist Name Role Phone TERRIE SPENCETA Unavailable PROBLEMS Type Condition ICD9-CM Code NCL61-KG Code Onset Dates Condition Status SNOMED Code Problem Morbid (severe) obesity due to excess calories E66.01 Active 576506448 Problem Primary insomnia F51.01 Active 2137464 Problem Major depressive disorder, single episode, moderate F32.1 Active 20644703 Problem Dysthymia F34.1 Active 69291867 ALLERGIES No Information ENCOUNTERS Encounter Location Date Diagnosis [facility] [address] [place] [address]476[address] Apr, Major depressive disorder, single episode, moderate F32.1 [facility] [id number] [place] [address] 08276- 37[address] Mar, BMI 40.0-44.9, adult Z68.41 ; Major depressive disorder, single episode, moderate F32.1 ; Primary insomnia F51.01 ; Morbid (severe) obesity due to excess calories E66.01 and Encounter to establish care Z76.89 [facility] [address] [place] [address] 21564- 6663 Mar, Dysthymia F34.1 [facility] [id number] [place] [address] 73144- [address] February, Major depressive disorder, single episode, moderate F32.1 [facility] [id number] [place] [address] 05834- [address] February, [facility] [id number] [address] Jan, [place] [address] [place] [address] Jan, Dysthymia F34.1 ; BMI 40.0-44.9, adult Z68.41 and Fatigue, unspecified type R53.83 [facility] [address] [facility] [id number] [place] [address] Nov, Strain of lumbar paraspinous muscle, initial encounter S39.012A and BMI 40.0-44.9, adult Z68.41 IMMUNIZATIONS No Known Immunizations SOCIAL HISTORY Never Assessed REASON FOR VISIT BH/AT phone response PLAN OF CARE VITAL SIGNS MEDICATIONS No Known Medications RESULTS No Results PROCEDURES No Known procedures INSTRUCTIONS MEDICATIONS ADMINISTERED No Known Medications MEDICAL (GENERAL) HISTORY Type Description Date Medical History Anxiety Medical History Severe depression Surgical History appendectomy 02/2017
--- OUTSIDE RECORDS SUMMARY | 2018-07-04 21:20 | XMS REPORT | Continuity of Care Document ---
Author Author [facility] Organization [facility] Address Unknown Phone Unavailable Allergies Active Description Code Type Severity Reaction Onset Reported/Identified Relationship to Patient Clinical Status Yes Penicillins [id number] Drug Allergy Unknown N/A 11/25/2009 Medications There is no data. Problems Date Dx Coded Attending Type Code Diagnosis Diagnosed By 04/07/2012 Ot 724.2 LUMBAGO 09/04/2014 HARVEY JACOBO MD Ot 724.2 03/20/2017 DOLORES KELSEY MD Ot E66.9 OBESITY, UNSPECIFIED 03/20/2017 DOLORES KELSEY MD Ot F17.210 NICOTINE DEPENDENCE, CIGARETTES, UNCOMPL 03/20/2017 DOLORES KELSEY MD Ot F32.9 MAJOR DEPRESSIVE DISORDER, SINGLE EPISOD 03/20/2017 DOLORES KELSEY MD Ot F41.9 ANXIETY DISORDER, UNSPECIFIED 03/20/2017 DOLORES KELSEY MD Ot J45.909 UNSPECIFIED ASTHMA, UNCOMPLICATED 03/20/2017 DOLORES KELSEY MD Ot K35.80 UNSPECIFIED ACUTE APPENDICITIS 03/20/2017 DOLORES KELSEY MD Ot Z68.36 BODY MASS INDEX (BMI) 36.0-36.9, ADULT 03/20/2017 DOLORES KELSEY MD Ot Z79.899 OTHER SNF (CURRENT) DRUG THERAPY 03/28/2017 DOLORES KELSEY MD Ot E66.9 OBESITY, UNSPECIFIED 03/28/2017 DOLORES KELSEY MD Ot F17.210 NICOTINE DEPENDENCE, CIGARETTES, UNCOMPL 03/28/2017 DOLORES KELSEY MD Ot F32.9 MAJOR DEPRESSIVE DISORDER, SINGLE EPISOD 03/28/2017 DOLORES KELSEY MD Ot F41.9 ANXIETY DISORDER, UNSPECIFIED 03/28/2017 DOLORES KELSEY MD Ot J45.909 UNSPECIFIED ASTHMA, UNCOMPLICATED 03/28/2017 DOLORES KELSEY MD Ot K35.80 UNSPECIFIED ACUTE APPENDICITIS 03/28/2017 LOW HOWARD, DOLORES Tripp Ot Z68.36 BODY MASS INDEX (BMI) 36.0-36.9, ADULT 03/28/2017 LOW HOWARD, DOLORES Tripp Ot Z79.899 OTHER SNF (CURRENT) DRUG THERAPY Procedures There is no data. Results Test Result Range Complete blood count (CBC) with automated white blood cell (WBC) differential - 03/19/17 03:20 Blood leukocytes automated count (number/volume) 16.9 10*3/uL 4.3-11.0 Blood erythrocytes automated count (number/volume) 4.87 10*6/uL 4.35-5.85 Venous blood hemoglobin measurement (mass/volume) 13.6 g/dL 11.5-16.0 Blood hematocrit (volume fraction) 41 % 35-52 Automated erythrocyte mean corpuscular volume 84 [foz_us] 80-99 Automated erythrocyte mean corpuscular hemoglobin (mass per erythrocyte) 28 pg 25-34 Automated erythrocyte mean corpuscular hemoglobin concentration measurement ( mass/volume) 33 g/dL 32-36 Automated erythrocyte distribution width ratio 15.0 % 10.0-14.5 Automated blood platelet count (count/volume) 248 10*3/uL 130-400 Automated blood platelet mean volume measurement 11.3 [foz_us] 7.4-10.4 Automated blood neutrophils/100 leukocytes 79 % 42-75 Automated blood lymphocytes/100 leukocytes 10 % 12-44 Blood monocytes/100 leukocytes 7 % 0-12 Automated blood eosinophils/100 leukocytes 4 % 0-10 Automated blood basophils/100 leukocytes 0 % 0-10 Blood neutrophils automated count (number/volume) 13.4 10*3 1.8-7.8 Blood lymphocytes automated count (number/volume) 1.7 10*3 1.0-4.0 Blood monocytes automated count (number/volume) 1.2 10*3 0.0-1.0 Automated eosinophil count 0.6 10*3/uL 0.0-0.3 Automated blood basophil count (count/volume) 0.1 10*3/uL 0.0-0.1 Serum or plasma choriogonadotropin ( test) detection - 03/19/17 03:20 Serum or plasma choriogonadotropin ( test) detection NEGATIVE NEGATIVE Blood manual differential performed detection - 03/19/17 03:20 Blood monocytes/100 leukocytes 4 % NRG Manual blood segmented neutrophils/100 leukocytes 78 % NRG Blood band neutrophils/100 leukocytes 2 % NRG Manual blood lymphocytes/100 leukocytes 8 % NRG Manual eosinophils/100 leukocytes in nose 2 % NRG Manual blood basophils/100 leukocytes 0 % NRG Blood lymphocytes variant/100 leukocytes 6 % NRG Blood anisocytosis detection by light microscopy SLIGHT NRG Comprehensive metabolic panel - 03/19/17 03:20 Serum or plasma sodium measurement (moles/volume) 138 mmol/L 135-145 Serum or plasma potassium measurement (moles/volume) 4.2 mmol/L 3.6-5.0 Serum or plasma chloride measurement (moles/volume) 108 mmol/L 98-107 Carbon dioxide 20 mmol/L 21-32 Serum or plasma anion gap determination (moles/volume) 10 mmol/L 5-14 Serum or plasma urea nitrogen measurement (mass/volume) 16 mg/dL 7-18 Serum or plasma creatinine measurement (mass/volume) 0.74 mg/dL 0.60-1.30 Serum or plasma urea nitrogen/creatinine mass ratio 22 NRG Serum or plasma creatinine measurement with calculation of estimated glomerular filtration rate > NRG Serum or plasma glucose measurement (mass/volume) 105 mg/dL 70-105 Serum or plasma calcium measurement (mass/volume) 9.2 mg/dL 8.5-10.1 Serum or plasma total bilirubin measurement (mass/volume) 0.1 mg/dL 0.1-1.0 Serum or plasma alkaline phosphatase measurement (enzymatic activity/volume) 65 U/L 40-136 Serum or plasma aspartate aminotransferase measurement (enzymatic activity/ volume) 14 U/L 5-34 Serum or plasma alanine aminotransferase measurement (enzymatic activity/volume ) 20 U/L 0-55 Serum or plasma protein measurement (mass/volume) 7.0 g/dL 6.4-8.2 Serum or plasma albumin measurement (mass/volume) 3.7 g/dL 3.2-4.5 Lipase - 03/19/17 03:20 Lipase 27 U/L 8-78 Complete urinalysis with reflex to culture - 03/19/17 04:44 Urine color determination YELLOW NRG Urine clarity determination CLEAR NRG Urine pH measurement by test strip 7 5-9 Specific gravity of urine by test strip 1.005 1.016- 1.022 Urine protein assay by test strip, semi-quantitative NEGATIVE NEGATIVE Urine glucose detection by automated test strip NEGATIVE NEGATIVE Erythrocytes detection in urine sediment by light microscopy NEGATIVE NEGATIVE Urine ketones detection by automated test strip NEGATIVE NEGATIVE Urine nitrite detection by test strip NEGATIVE NEGATIVE Urine total bilirubin detection by test strip NEGATIVE NEGATIVE Urine urobilinogen measurement by automated test strip (mass/volume) NORMAL NORMAL Urine leukocyte esterase detection by dipstick NEGATIVE NEGATIVE Automated urine sediment erythrocyte count by microscopy (number/high power field) NONE NRG Automated urine sediment leukocyte count by microscopy (number/high power field ) RARE NRG Bacteria detection in urine sediment by light microscopy TRACE NRG Squamous epithelial cells detection in urine sediment by light microscopy 5-10 NRG Crystals detection in urine sediment by light microscopy NONE NRG Casts detection in urine sediment by light microscopy NONE NRG Mucus detection in urine sediment by light microscopy NEGATIVE NRG Complete urinalysis with reflex to culture NO NRG Methicillin resistant Staphylococcus aureus (MRSA) screening culture - 06:32 Methicillin resistant Staphylococcus aureus (MRSA) screening culture NEG NRG Encounters ACCT No. Visit Date/Time Discharge Status Pt. Type Provider Facility Loc./Unit Complaint [id number] 03/19/2017 05:55:00 03/20/2017 09:50:00 DIS Outpatient LOW HOWARD, DOLORES Tripp [facility] SDC APPENDICITIS, NAUSEA [id number] 09/04/2014 03:33:00 09/04/2014 04:17:00 DIS Emergency HARVEY JACOBO MD [facility] ER [id number] 07/04/2018 21:15:00 ACT Emergency JOSE NG DO [facility] ER L EAR INFECTION [id number] 04/07/2012 08:47:00 Document Registration [id number] 09:20:00 2018 23:59:59 CLS Outpatient HARSHA PERRIN [facility]
--- OUTSIDE RECORDS SUMMARY | 2018-07-04 21:20 | XMS REPORT ---
Author Author LYDIA SPENCE Organization [facility] Address [address] [place] [address] Care Team Providers Care Prism Inspector Name Role Phone TERRIE SPENCETA Unavailable PROBLEMS Type Condition ICD9-CM Code YRF82-CG Code Onset Dates Condition Status SNOMED Code Problem Morbid (severe) obesity due to excess calories E66.01 Active 718118916 Problem Primary insomnia F51.01 Active 8291063 Problem Major depressive disorder, single episode, moderate F32.1 Active 58634951 Problem Dysthymia F34.1 Active 65954415 ALLERGIES No Information ENCOUNTERS Encounter Location Date Diagnosis [facility] [address] [place] [address]99- [address] Apr, Major depressive disorder, single episode, moderate F32.1 [facility] [id number] [place] [address] 53170- 6[address] Mar, BMI 40.0-44.9, adult Z68.41 ; Major depressive disorder, single episode, moderate F32.1 ; Primary insomnia F51.01 ; Morbid (severe) obesity due to excess calories E66.01 and Encounter to establish care Z76.89 [facility] [address] [place] [address]45- [address] Mar, Dysthymia F34.1 [facility] [id number] [place] [address] 43130- [address] February, Major depressive disorder, single episode, moderate F32.1 [facility] [id number] [place] [address] 43[address]- [address] February, [facility] [id number], [place] [address] Jan, [place] [address] [place] [address] Jan, Dysthymia F34.1 ; BMI 40.0-44.9, adult Z68.41 and Fatigue, unspecified type R53.83 [facility] [address] [facility] [id number] [place] [address] Nov, Strain of lumbar paraspinous muscle, initial encounter S39.012A and BMI 40.0-44.9, adult Z68.41 IMMUNIZATIONS No Known Immunizations SOCIAL HISTORY Never Assessed REASON FOR VISIT Verify Medications PLAN OF CARE VITAL SIGNS MEDICATIONS Medication Instructions Dosage Frequency Start Date End Date Duration Status Naproxen 250 MG Orally Twice a day 1 tablet with food or milk 12h Active Prozac 20 mg Orally Once a day 1 capsule in the morning 24h Jan, 30 day(s) Active Trazodone HCl 50 MG Orally Once a day 1 tablet at bedtime as needed 24h Active RESULTS No Results PROCEDURES No Known procedures INSTRUCTIONS MEDICATIONS ADMINISTERED No Known Medications MEDICAL (GENERAL) HISTORY Type Description Date Medical History Anxiety Medical History Severe depression Surgical History appendectomy 02/2017
== END 2018-07-04 21:47 | disposition left against medical advice (07) ==
LOC: EDUNIT# 21:14 → ER 21:15
DX: H66.92 Otitis media, unspecified, left ear (principal)

== ENCOUNTER 2018-10-25 12:23 | Emergency (ER) | payer SELFPAY, OTHER | END 2018-10-25 14:09 | disposition home or self-care (01) | LOC: ER 12:23 ==

== ENCOUNTER 2019-08-30 14:35 | Emergency (ER) | payer SELFPAY ==
[~2019-08-30] VITALS: Ht 170.1 cm; Wt 90.9 kg
[~2019-08-30 14:35] MED LIST changes: +AZIT250T PO; +D-ME473S38 PO
[2019-08-30 14:56] LABS: BASOPHILS # (AUTO) 0.1 10^3/uL (0.0-0.1); BASOPHILS % (AUTO) 1 % (0-10); EOSINOPHILS # (AUTO) 0.3 10^3/uL (0.0-0.3); EOSINOPHILS % (AUTO) 3 % (0-10); HEMATOCRIT 43 % (35-52); HEMOGLOBIN 14.1 G/DL (11.5-16.0); LYMPHOCYTES # (AUTO) 2.3 X 10^3 (1.0-4.0); LYMPHOCYTES % (AUTO) 26 % (12-44); MEAN CORPUSCULAR HEMOGLOBIN 28 PG (25-34); MEAN CORPUSCULAR HGB CONC 33 G/DL (32-36); MEAN CORPUSCULAR VOLUME 83 FL (80-99); MEAN PLATELET VOLUME 10.2 FL (7.4-10.4); MONOCYTES # (AUTO) 0.5 X 10^3 (0.0-1.0); MONOCYTES % (AUTO) 6 % (0-12); NEUTROPHILS # (AUTO) 5.7 X 10^3 (1.8-7.8); NEUTROPHILS % (AUTO) 65 % (42-75); PLATELET COUNT 282 10^3/uL (130-400); RED CELL DISTRIBUTION WIDTH 15.6 % (10.0-14.5); WHITE BLOOD COUNT 8.8 10^3/uL (4.3-11.0)
--- NOTE | 2019-08-30 15:13 | Diagnostic Imaging Report ---
INDICATION: Headache and visual changes. TECHNIQUE: Multiple contiguous axial images were obtained through the brain without the use of intravenous contrast. Auto Exposure Controls were utilized during the CT exam to meet ALARA standards for radiation dose reduction. EXAMINATION: Noncontrast brain CT was performed. COMPARISON: There is no prior study for comparison. FINDINGS: There are no extra-axial fluid collections. No intracranial hemorrhage. No intracranial mass or mass effect. No midline shift. The ventricles are normal in size and position. There are no focal parenchymal abnormalities in the brain. Calvarial windows are unremarkable. IMPRESSION: Negative noncontrast brain CT. Dictated by: Dictated on workstation # [id number]
[2019-08-30 15:16] LABS: ERYTHROCYTE SEDIMENTATION RATE 12 MM/HR (0-20)
[2019-08-30 15:20] LABS: ALANINE AMINOTRANSFERASE 13 U/L (0-55); ALBUMIN 4.3 GM/DL (3.2-4.5); ALKALINE PHOSPHATASE 73 U/L (40-136); BILIRUBIN,TOTAL 0.4 MG/DL (0.1-1.0); BUN/CREATININE RATIO 10; CALCIUM 9.4 MG/DL (8.5-10.1); CARBON DIOXIDE 20 MMOL/L (21-32); CHLORIDE 107 MMOL/L (98-107); GFR ESTIMATED > 60; GLUCOSE 85 MG/DL (70-105); POTASSIUM 3.7 MMOL/L (3.6-5.0); SODIUM 139 MMOL/L (135-145); TOTAL PROTEIN 7.3 GM/DL (6.4-8.2)
--- NOTE | 2019-08-30 15:22 | ED Headache ---
General Chief Complaint: Head/Cervical Problems Stated Complaint: FAINTING;HEAD PAIN;BLURRED VISION Nursing Triage Note: PT TO RM 7 BY WHEELCHAIR WITH COMPLAINT OF HEADACHE. STATES HEADACHE WAS SUDDEN ONSET AT HOME WHILE MAKING T SHIRTS. STATES STARTED AROUND 1315. STATES THE PAIN IS A CONSTANT POUNDING. Nursing Sepsis Screen: No Definite Risk Source: patient, family History of Present Illness Date Seen by Provider: Aug 30, 2019 Time Seen by Provider: 14:40 Initial Comments 39-year-old female presents with a headache. 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 She has a constant pounding. She has some blurred vision. She denies any neck pain, no fevers or chills. She does have some mild nausea. Patient reports that caused her to faint. No urinary symptoms no vomiting, diarrhea or other systemic complaints Allergies and Home Medications Allergies Coded Allergies: Penicillins (Verified Allergy, Unknown, 11/25/09) Home Medications Azithromycin 250 Mg Tablet, 250 MG PO UD TAKE 2 TABLETS TODAY, THEN TAKE 1 TABLET DAILY FOR 4 MORE DAYS Prescribed by: CHARLI BOOTH on 10/25/18 1408 Hydrocodone Bit/Acetaminophen 1 Each Tablet, 1 EACH PO Q4HR PRN Prescribed by: MILDRED ORO MD on 12/30/09 1750 Hydrocodone Bit/Acetaminophen 1 Each Tablet, 1-2 TAB PO 4-6HR PRN for PAIN Prescribed by: DOLORES KELSEY on 03/19/17 0811 Methylprednisolone 4 Mg Tab.ds.pk, 4 MG PO UD Prescribed by: CHARLI BOOTH on 10/25/18 1408 Promethazine/Dextromethorphan 473 Ml Syrup, 5 ML PO Q6H PRN for COUGH Prescribed by: CHARLI BOOTH on 10/25/18 1408 Patient Home Medication List Home Medication List Reviewed: Yes Review of Systems Review of Systems Constitutional: No chills, No fever Eyes: Blurred Vision Ears, Nose, Mouth, Throat: no symptoms reported Respiratory: no symptoms reported; No cough, No short of breath Cardiovascular: No chest pain Gastrointestinal: nausea; No vomiting Musculoskeletal: no symptoms reported Skin: no symptoms reported Psychiatric/Neurological: See HPI Past Cdgzxln-Bofwtv-Uemzab Hx Patient Social History Alcohol Use: Denies Use Recreational Drug Use: No Smoking Status: Current Everyday Smoker Type Used: Cigarettes Recent Foreign Travel: No Contact w/Someone Who Travel: No Recent Infectious Disease Expo: No Recent Hopitalizations: No Physical Abuse: No Sexual Abuse: No Mistreated: No Fear: No Immunizations Up To Date Tetanus Booster (TDap): Unknown Seasonal Allergies Seasonal Allergies: Yes Past Medical History Surgeries: Yes (wisdom teeth removed) Appendectomy Respiratory: Yes Asthma Cardiac: No Neurological: No Reproductive Disorders: No Sexually Transmitted Disease: No HIV/AIDS: No Genitourinary: No Gastrointestinal: No Musculoskeletal: Yes Chronic Back Pain Endocrine: No HEENT: No Cancer: No Psychosocial: Yes Anxiety, Depression Integumentary: No Blood Disorders: No Adverse Reaction/Blood Tranf: No Physical Exam Vital Signs Vital Signs - First Documented 08/30/19 14:40 Temp 36.7 Pulse 58 Resp 22 B/P (MAP) 119/86 (97) Pulse Ox 100 O2 Delivery Room Air Capillary Refill : Less Than 3 Seconds Height, Weight, BMI Height: 5'7.00" Weight: 230lbs. 0.0oz. [id number]; 31.00 BMI Method:Stated General Appearance: no apparent distress HEENT: PERRL/EOMI Neck: non-tender, supple, other (no meningeal sign) Cardiovascular: normal peripheral pulses, regular rate, rhythm Respiratory: chest non-tender, lungs clear, normal breath sounds Gastrointestinal: non tender, soft Psychiatric: alert, oriented x 3 Crainal Nerves: normal speech Coordination/Gait: normal gait Motor/Sensory: no motor deficit, no sensory deficit Skin: normal color, warm/dry Progress/Results/Core Measures Results/Orders Lab Results Laboratory Tests Test 08/30/19 14:48 08/30/19 14:54 08/30/19 15:35 Range/Units White Blood Count 8.8 4.3-11.0 10^3/uL Red Blood Count 5.11 4.35-5.85 10^6/uL Hemoglobin 14.1 11.5-16.0 G/DL Hematocrit 43 35-52 % Mean Corpuscular Volume 83 80-99 FL Mean Corpuscular Hemoglobin 28 25-34 PG Mean Corpuscular Hemoglobin Concent 33 32-36 G/DL Red Cell Distribution Width 15.6 H 10.0-14.5 % Platelet Count 282 130-400 10^3/uL Mean Platelet Volume 10.2 7.4-10.4 FL Neutrophils (%) (Auto) 65 42-75 % Lymphocytes (%) (Auto) 26 12-44 % Monocytes (%) (Auto) 6 0-12 % Eosinophils (%) (Auto) 3 0-10 % Basophils (%) (Auto) 1 0-10 % Neutrophils # (Auto) 5.7 1.8-7.8 X 10^3 Lymphocytes # (Auto) 2.3 1.0-4.0 X 10^3 Monocytes # (Auto) 0.5 0.0-1.0 X 10^3 Eosinophils # (Auto) 0.3 0.0-0.3 10^3/uL Basophils # (Auto) 0.1 0.0-0.1 10^3/uL Erythrocyte Sedimentation Rate 12 0-20 MM/HR Sodium Level 139 135-145 MMOL/L Potassium Level 3.7 3.6-5.0 MMOL/L Chloride Level 107 98-107 MMOL/L Carbon Dioxide Level 20 L 21-32 MMOL/L Anion Gap 12 5-14 MMOL/L Blood Urea Nitrogen 8 7-18 MG/DL Creatinine 0.80 0.60-1.30 MG/DL Estimat Glomerular Filtration Rate > 60 BUN/Creatinine Ratio 10 Glucose Level 85 70-105 MG/DL Calcium Level 9.4 8.5-10.1 MG/DL Corrected Calcium 9.2 8.5-10.1 MG/DL Total Bilirubin 0.4 0.1-1.0 MG/DL Aspartate Amino Transf (AST/SGOT) 11 5-34 U/L Alanine Aminotransferase (ALT/SGPT) 13 0-55 U/L Alkaline Phosphatase 73 40-136 U/L C-Reactive Protein High Sensitivity 0.82 H 0.00-0.50 MG/DL Total Protein 7.3 6.4-8.2 GM/DL Albumin 4.3 3.2-4.5 GM/DL Thyroid Stimulating Hormone (TSH) 1.32 0.35-4.94 UIU/ML Lactic Acid Level 0.65 0.50-2.00 MMOL/L Urine Color YELLOW Urine Clarity CLEAR Urine pH 6.0 5-9 Urine Specific [place] 1.010 L 1.016-1.022 Urine Protein NEGATIVE NEGATIVE Urine Glucose (UA) NEGATIVE NEGATIVE Urine Ketones NEGATIVE NEGATIVE Urine Nitrite NEGATIVE NEGATIVE Urine Bilirubin NEGATIVE NEGATIVE Urine Urobilinogen 0.2 < = 1.0 MG/DL Urine Leukocyte Esterase NEGATIVE NEGATIVE Urine RBC (Auto) NEGATIVE NEGATIVE Urine RBC NONE /HPF Urine WBC 0-2 /HPF Urine Squamous Epithelial Cells RARE /HPF Urine Crystals NONE /LPF Urine Bacteria TRACE /HPF Urine Casts NONE /LPF Urine Mucus NEGATIVE /LPF Urine Culture Indicated NO Urine Opiates Screen NEGATIVE NEGATIVE Urine Oxycodone Screen NEGATIVE NEGATIVE Urine Methadone Screen NEGATIVE NEGATIVE Urine Propoxyphene Screen NEGATIVE NEGATIVE Urine Barbiturates Screen NEGATIVE NEGATIVE Ur Tricyclic Antidepressants Screen NEGATIVE NEGATIVE Urine Phencyclidine Screen NEGATIVE NEGATIVE Urine Amphetamines Screen POSITIVE H NEGATIVE Urine Methamphetamines Screen NEGATIVE NEGATIVE Urine Benzodiazepines Screen NEGATIVE NEGATIVE Urine Cocaine Screen NEGATIVE NEGATIVE Urine Cannabinoids Screen NEGATIVE NEGATIVE My Orders Orders - DAVIS,NO L DO Ct Head Wo-R/O Stroke (08/30/19 14:43) Chest 1 View, Ap/Pa Only (08/30/19 14:43) Cbc With Automated Diff (08/30/19 14:43) Comprehensive Metabolic Panel (08/30/19 14:43) Hs C Reactive Protein (08/30/19 14:43) Erythrocyte Sedimentation Rate (08/30/19 14:43) Drug Screen Stat (Urine) (08/30/19 14:43) Lactic Acid Analyzer (08/30/19 14:43) Thyroid Stimulating Hormone (08/30/19 14:43) Ua Culture If Indicated (08/30/19 14:43) I-Stat Bedside Testing (08/30/19 14:43) Ed Iv/Invasive Line Start (08/30/19 15:23) Ns Iv 1000 Ml (Sodium Chloride 0.9%) (08/30/19 15:23) Metoclopramide Injection (Reglan Injecti (08/30/19 15:23) Ketorolac Injection (Toradol Injection) (08/30/19 15:30) Ketorolac Injection (Toradol Injection) (08/30/19 15:26) Medications Given in ED Current Medications Medications Dose Ordered Sig/Brielle Route Start Time Stop Time Status Last Admin Dose Admin Ketorolac Tromethamine 15 mg ONCE ONCE IVP 08/30/19 15:30 08/30/19 15:31 DC 08/30/19 15:35 15 MG Vital Signs/I&O 08/30/19 08/30/19 14:40 16:33 Temp 36.7 36.7 Pulse 58 55 Resp 22 20 B/P (MAP) 119/86 (97) 108/66 (97) Pulse Ox 100 100 O2 Delivery Room Air Room Air Blood Pressure Mean: 97 POS iStat Bedside Lab Testing Sodium (Na): 140.00 Potassium (K): 3.50 Chloride (CI): 104.00 TCO2: 22.00 Glucose (Glu): 88.00 Urea Nitrogen (BUN)/Urea: 7.00 Creatinine (Crea): 0.70 Anion Gap*: 18.00 Progress Progress Note : Time: 16:23 Progress Note Patient's symptoms and headache completely resolved following treatment. Patient with negative head CT and no acute findings on labs. Discussed with her that it is likely some type of a headache syndrome such as tension versus undiagnosed migraines or a possible viral infection. However patient is doing much better we'll discharge her home. She should use Tylenol ibuprofen as needed for headache if it returns. She had use [id number]-[id number] medications as needed for viral support. Departure Impression Primary Impression: Headache Qualified Codes: R51 - Headache Disposition: 01 HOME, SELF-CARE Condition: Stable Departure-Patient Inst. Referrals: [facility] (PCP/Family) Primary Care Physician Patient Instructions: Headache, Adult (DC), VIRAL SYNDROME NO DAVIS DO Aug 30, 2019 15:22 POS
[2019-08-30] MEDS ORDERED: METOCLOPRAMIDE INJ 10 MG/2 ML (REGLAN) IVP STA (15:23)
[2019-08-30] MEDS ORDERED: NS IV 1000 ML 1,000 ML IV SCH (15:23)
[2019-08-30] MEDS ORDERED: KETOROLAC 30 MG/ML VIAL ONE (15:26)
[2019-08-30] MEDS ORDERED: KETOROLAC 15 MG/ML VIAL IVP ONE (15:30)
--- NOTE | 2019-08-30 15:33 | Diagnostic Imaging Report ---
INDICATION: Sudden onset severe headache. Frontal chest obtained at 03:08 p.m. and is compared to 10/25/2018. Heart is borderline in size. Mediastinal silhouette is unremarkable. There are chronic increased interstitial markings or scarring in the right medial base. There is no new consolidation or pneumothorax or pleural fluid. IMPRESSION: There is unchanged scarring or atelectasis in the right medial base. There is no new consolidation or pneumothorax or pleural fluid. Heart is borderline in size. Dictated by: Dictated on workstation # [id number]
[2019-08-30 15:42] LABS: BILIRUBIN,URINE NEGATIVE (NEGATIVE); CLARITY,URINE CLEAR; COLOR,URINE YELLOW; GLUCOSE, URINE (UA) NEGATIVE (NEGATIVE); KETONES,URINE NEGATIVE (NEGATIVE); LEUKOCYTE ESTERASE ,URINE NEGATIVE (NEGATIVE); NITRITE,URINE NEGATIVE (NEGATIVE); PROTEIN,URINE NEGATIVE (NEGATIVE)
[2019-08-30 15:50] LABS: BACTERIA,URINE TRACE /HPF; SQUAMOUS EPITHELIAL CELL,UR RARE /HPF; WBC,URINE 0-2 /HPF
[2019-08-30 16:12] LABS: AMPHETAMINE SCREEN, URINE POSITIVE (NEGATIVE); BARBITURATE SCREEN URINE NEGATIVE (NEGATIVE); BENZODIAZEPINES SCREEN URINE NEGATIVE (NEGATIVE); CANNABINOID SCREEN, URINE NEGATIVE (NEGATIVE); COCAINE SCREEN URINE NEGATIVE (NEGATIVE); METHADONE STAT NEGATIVE (NEGATIVE); METHAMPHETAMINE SCREEN URINE S NEGATIVE (NEGATIVE); OPIATE SCREEN URINE NEGATIVE (NEGATIVE); OXYCODONE STAT NEGATIVE (NEGATIVE); PROPOXYPHENE STAT NEGATIVE (NEGATIVE); TRICYCLIC ANTIDEPRESSANTS SCRE NEGATIVE (NEGATIVE)
[2019-08-30 16:33] VITALS: BP 108/66
== END 2019-08-30 16:33 | disposition home or self-care (01) ==
LOC: EDUNIT# 14:35 → ER 14:36
DX: R51 Headache (principal); J45.909 Unspecified asthma, uncomplicated; F41.9 Anxiety disorder, unspecified; F32.9 Major depressive disorder, single episode, unspecified; F17.210 Nicotine dependence, cigarettes, uncomplicated; Z90.49 Acquired absence of other specified parts of digestive tract; Z88.0 Allergy status to penicillin; Z79.52 Long term (current) use of systemic steroids
CPT/HCPCS: 36415; 70450; 71045; 80053; 80306; 81000; 83605; 84443; 85025; 85652; 86141

== ENCOUNTER 2020-06-19 15:17 | Emergency (ER) | payer SELFPAY ==
[~2020-06-19] VITALS: Ht 165 cm; Wt 77.0 kg
[~2020-06-19 15:17] MED LIST changes: +D-ME473S11 PO; -D-ME473S38 PO
[2020-06-19] MEDS ORDERED: predniSONE 20 MG TAB PO ONE (15:45)
[2020-06-19] MEDS ORDERED: predniSONE 10 MG TAB ONE (15:54)
--- NOTE | 2020-06-19 15:58 | ED Respiratory ---
General Stated Complaint: SOA Source: patient Exam Limitations: no limitations History of Present Illness Date Seen by Provider: Jun 19, 2020 Time Seen by Provider: 15:38 Initial Comments here with report of shortness of air. Last 24 hours and worsening today. Does have history of asthma and thought maybe it was her asthma that was worsening. She apparently has possible contacts in her family related to COVID-19 and is concerned about that. She has felt fever and chills. Has had an episode of nausea. Usually does not get asthma and is early in the season. She did use her albuterol inhaler times today and then got shaky.she is concerned because she does not want to get her family sick. Timing/Duration: yesterday, getting worse Severity: moderate Prior Episodes/Possible Cause: occasional episodes Modifying Factors: Improves With Activity (continue) Associated Symptoms: fever/chills, nasal congestion, shortness of breath, wheezing Allergies and Home Medications Allergies Coded Allergies: Penicillins (Verified Allergy, Unknown, 11/25/09) Home Medications Azithromycin 250 Mg Tablet, 250 MG PO UD TAKE 2 TABLETS TODAY, THEN TAKE 1 TABLET DAILY FOR 4 MORE DAYS Prescribed by: CHARLI BOOTH on 10/25/18 1408 Hydrocodone Bit/Acetaminophen 1 Each Tablet, 1 EACH PO Q4HR PRN Prescribed by: MILDRED ORO MD on 12/30/09 1750 Hydrocodone Bit/Acetaminophen 1 Each Tablet, 1-2 TAB PO 4-6HR PRN for PAIN Prescribed by: DOLORES KELSEY on 03/19/17 0811 Methylprednisolone 4 Mg Tab.ds.pk, 4 MG PO UD Prescribed by: CHARLI BOOTH on 10/25/18 1408 Promethazine/Dextromethorphan 473 Ml Syrup, 5 ML PO Q6H PRN for COUGH Prescribed by: CHARLI BOOTH on 10/25/18 1408 Patient Home Medication List Home Medication List Reviewed: Yes Review of Systems Review of Systems Constitutional: see HPI, chills, fever EENTM: no symptoms reported Respiratory: see HPI Cardiovascular: no symptoms reported Gastrointestinal: No abdominal pain; nausea, vomiting Genitourinary: no symptoms reported Musculoskeletal: see HPI Psychiatric/Neurological: No Symptoms Reported Past Hntejhs-Rgfrpw-Kncfho Hx Past Med/Social Hx: Reviewed Nursing Past Med/Soc Hx Patient Social History Alcohol Use: Denies Use Recreational Drug Use: No Smoking Status: Current Everyday Smoker Type Used: Cigarettes Recent Hopitalizations: No Immunizations Up To Date Tetanus Booster (TDap): Unknown Seasonal Allergies Seasonal Allergies: Yes Past Medical History Surgeries: Yes (wisdom teeth removed) Appendectomy Respiratory: Yes Asthma Cardiac: No Neurological: No Reproductive Disorders: No Sexually Transmitted Disease: No HIV/AIDS: No Genitourinary: No Gastrointestinal: No Musculoskeletal: Yes Chronic Back Pain Endocrine: No HEENT: No Cancer: No Psychosocial: Yes Anxiety, Depression Integumentary: No Blood Disorders: No Adverse Reaction/Blood Tranf: No Family Medical History Reviewed Nursing Family Hx No Pertinent Family Hx Physical Exam Capillary Refill : Height: 5'7.00" Weight: 230lbs. 0.0oz. 104.704670kj; 31.00 BMI Method:Stated General Appearance: WD/WN, no apparent distress HEENT: PERRL/EOMI, pharynx normal Neck: full range of motion, supple Respiratory: no accessory muscle use, wheezing (bilateral basilar), expiration Cardiovascular: regular rate, rhythm, no murmur Neurologic/Psychiatric: alert, oriented x 3 Skin: normal color, warm/dry Progress/Results/Core Measures Suspected Sepsis SIRS Temperature: Pulse: Respiratory Rate: Blood Pressure / Mean: Results/Orders My Orders Orders - JOAO SECOBEDO MD Prednisone Tablet (Deltasone Tablet) (06/19/20 15:45) Coronavirus Sars-Cov-2 So 2018 (06/19/20 15:39) Vital Signs/I&O Capillary Refill : Progress Note : Progress Note seen and evaluated. Prednisone 40 mg by mouth. Patient has albuterol inhaler. COVID-19 swab done. Discharged home with return precautions. Patient verbalize understanding instructions and agreement with plan. Departure Impression Primary Impression: Asthma exacerbation Qualified Codes: J45.21 - Mild intermittent asthma with (acute) exacerbation Additional Impression: COVID 19 evaluation Disposition: 01 HOME, SELF-CARE Condition: Stable Departure-Patient Inst. Decision time for Depature: 15:58 Referrals: [facility] (PCP/Family) Primary Care Physician Patient Instructions: Asthma, Adult (DC), Coronavirus Disease 2019 (COVID-19) (DC) Add. Discharge Instructions: Drink plenty of fluids and get plenty of rest. You will need to remain on quarantine until test results are noted. If they are negative, you will need to be isolated for 3 days after symptoms resolve. If they are positive, the health department will call you and direct quarantine timeframe. You may take ibuprofen 600 mg every 8 hours as needed for fever or pain. You may take Tylenol/acetaminophen 1000 mg every 8 hours as needed for fever.. Return for worse pain, fever, vomiting, weakness, breathing problems or other concerns as needed. Scripts Prednisone (Prednisone) 20 Mg Tab 40 MG PO DAILY, #8 TAB 0 Refills Prov: JOAO ESCOBEDO MD 06/19/20 JOAO ESCOBEDO MD Jun 19, 2020 15:58
[2020-06-19] MEDS ORDERED: PRD20T PO (15:59)
[2020-06-19 16:05] VITALS: BP 132/78
== END 2020-06-19 16:05 | disposition home or self-care (01) ==
LOC: EDUNIT# 15:17 → ER 15:18
DX: J45.901 Unspecified asthma with (acute) exacerbation (principal); G89.29 Other chronic pain; M54.9 Dorsalgia, unspecified; F17.210 Nicotine dependence, cigarettes, uncomplicated; Z20.828 Contact with and (suspected) exposure to other viral communicable diseases; Z88.2 Allergy status to sulfonamides; Z79.891 Long term (current) use of opiate analgesic; Z79.52 Long term (current) use of systemic steroids
CPT/HCPCS: 99282; U0002; 87635; 99283

== ENCOUNTER 2021-08-20 12:16 | Emergency (ER) | payer SELFPAY ==
[~2021-08-20] VITALS: Ht 170 cm; Wt 100.0 kg
[~2021-08-20 12:16] MED LIST changes: +PRD20T PO
[2021-08-20] MEDS ORDERED: fentaNYL INJ 100 MCG/2 ML AMP IVP ONE ×2 (13:15→14:15)
[2021-08-20 13:39] LABS: BASOPHILS # (AUTO) 0.1 10^3/uL (0.0-0.1); BASOPHILS % (AUTO) 1 % (0-10); EOSINOPHILS # (AUTO) 0.3 10^3/uL (0.0-0.3); EOSINOPHILS % (AUTO) 4 % (0-10); HEMATOCRIT 42 % (35-52); HEMOGLOBIN 13.8 g/dL (11.5-16.0); LYMPHOCYTES # (AUTO) 2.5 10^3/uL (1.0-4.0); LYMPHOCYTES % (AUTO) 27 % (12-44); MEAN CORPUSCULAR HEMOGLOBIN 28 pg (25-34); MEAN CORPUSCULAR HGB CONC 33 g/dL (32-36); MEAN CORPUSCULAR VOLUME 87 fL (80-99); MEAN PLATELET VOLUME 10.7 fL (9.0-12.2); MONOCYTES # (AUTO) 0.6 10^3/uL (0.0-1.0); MONOCYTES % (AUTO) 6 % (0-12); NEUTROPHILS # (AUTO) 5.5 10^3/uL (1.8-7.8); NEUTROPHILS % (AUTO) 61 % (42-75); PLATELET COUNT 271 10^3/uL (130-400)
[2021-08-20 13:52] LABS: ALBUMIN 4.1 GM/DL (3.2-4.5)
[2021-08-20 13:53] LABS: POTASSIUM 4.2 MMOL/L (3.6-5.0)
[2021-08-20 13:54] LABS: CALCIUM 9.3 MG/DL (8.5-10.1)
[2021-08-20 13:55] LABS: TOTAL PROTEIN 7.1 GM/DL (6.4-8.2)
[2021-08-20 13:57] LABS: BILIRUBIN,TOTAL 0.3 MG/DL (0.1-1.0)
[2021-08-20 13:58] LABS: CREATININE SERUM 0.78 MG/DL (0.60-1.30)
[2021-08-20] MEDS ORDERED: IOHEXOL 350 MG/ML 100 ML (OMNIPAQUE 350) VIAL IV ONE (14:00)
[2021-08-20] MEDS ORDERED: NS 100 ML (IVPB) BAG IV ONE (14:00)
[2021-08-20] MEDS ORDERED: HOLD METFORMIN - RECEIVED CONTRAST 20 ML VIAL IV SCH (14:00)
--- NOTE | 2021-08-20 14:12 | Diagnostic Imaging Report ---
CLINICAL INDICATION: Patient with right lower tooth pain and infection. EXAM: Axial CT scan of the maxillofacial structures performed with 75 mL of Omnipaque 350 IV contrast. Sagittal and coronal reformatted images were created. Auto Exposure Controls were utilized during the CT exam to meet ALARA standards for radiation dose reduction. COMPARISON: Head CT without contrast dated 08/30/2019. FINDINGS: There are bilateral submandibular and bilateral level II lymph nodes seen which are subcentimeter in short axis and likely reactive. There is no soft tissue abscess or significant fat stranding seen on this exam. There are dental caries involving the buccal aspects of the mandibular right first and second premolar teeth and first molar tooth. There is no adjacent soft tissue swelling or abscess seen in the adjacent soft tissue. Otherwise, there is no bony erosive or destructive process seen. There is complete consolidation of both maxillary sinuses which are small in size. There is lateral deviation of the medial rivero of both maxillary sinuses. This may be seen with silent sinus syndrome. There is mild mucosal thickening involving the ethmoid sinus. There is 5 mm of leftward nasal septal deviation. Orbits and globes are unremarkable. Visualized oral cavity, tongue, and sublingual regions are unremarkable. Visualized portions of the intracranial structures show no significant abnormality. Mastoid air cells are clear as visualized. IMPRESSION: 1: There are dental caries involving three adjacent teeth consisting of the mandibular right first and second premolar teeth and first molar tooth. There is no adjacent soft tissue swelling or abscess. 2: There is paranasal sinus disease. There is complete consolidation of both maxillary sinuses with small antra which may be seen with silent sinus syndrome. 3: There is leftward nasal septal deviation. Dictated by: Dictated on workstation # [id number]
[2021-08-20] MEDS ORDERED: KETOROLAC 30 MG/ML VIAL IVP ONE (14:15)
[2021-08-20] MEDS ORDERED: ACHD5005 PO (14:20)
--- NOTE | 2021-08-20 14:21 | ED EENT ---
History of Present Illness General Chief Complaint: Dental Problems/Pain Stated Complaint: TOOTH INFECTION Nursing Triage Note: PT AMB TO FT2 PT CO OF DENTAL PAIN , L LOWER JAW, PT STATES WAS SEEN AT [facility] YESTERDAY PUT ON CLINDAMYCIN AND TOLD TO [facility] IN SEP FOR EXTRACTION. PT RATES PAIN 08/01. Source: patient Exam Limitations: no limitations History of Present Illness Date Seen by Provider: Aug 20, 2021 Time Seen by Provider: 12:58 Initial Comments This is a well-appearing 41-year-old female who presented to the ER with complaints of right-sided facial pain with her dental pain. States that she was seen by her dentist a couple 3 days ago and prescribed clindamycin. However states that her pain is progressively worsening and was told by her dentist to come to the ER for evaluation as she may "need IV antibiotics". She has been taking Tylenol and ibuprofen with last dose around 10:00 this morning. States th at she is having difficulty time opening her mouth is still drinking well. No fever, chills, cough, shortness of breath, nausea, vomiting, abdominal pain. Last menstrual period 2 weeks ago. Allergies and Home Medications Allergies Coded Allergies: Penicillins (Verified Allergy, Unknown, 11/25/09) Patient Home Medication List Home Medication List Reviewed: Yes Alprazolam (Alprazolam) 0.5 Mg Tablet, (Reported) Entered as Reported by: TIEN KRUEGER on 03/19/17 0331 Azithromycin (Zithromax) 250 Mg Tablet, 250 MG PO UD Prescribed by: CHARLI BOOTH on 10/25/18 1408 Hydrocodone Bit/Acetaminophen (Vicodin 5-500 Tablet) 1 Each Tablet, 1 EACH PO Q4HR PRN Prescribed by: MILDRED ORO MD on 12/30/09 1750 Hydrocodone Bit/Acetaminophen (Lortab 5 Mg Tablet) 1 Each Tablet, 1-2 TAB PO 4- 6HR PRN for PAIN Prescribed by: DOLORES KELSEY on 03/19/17 0811 Hydrocodone/Acetaminophen (Hydrocodone-Acetamin 5-325 mg) 1 Each Tablet, 1 TAB PO Q6H PRN for PAIN-MODERATE (5-7) Prescribed by: HERMES OSMAN on 08/20/21 1421 Methylprednisolone (Medrol) 4 Mg Tab.ds.pk, 4 MG PO UD Prescribed by: CHARLI BOOTH on 10/25/18 140 Prednisone (Prednisone) 20 Mg Tab, 40 MG PO DAILY Prescribed by: JOAO ESCOBEDO on 06/19/20 1559 Promethazine/Dextromethorphan (Promethazine-Dm Syrup) 473 Ml Syrup, 5 ML PO Q6H PRN for COUGH Prescribed by: CHARLI BOOTH on 10/25/18 140 [Buspar] , (Reported) Entered as Reported by: TIEN KRUEGER on 03/19/17330 [Cymbalta] , (Reported) Entered as Reported by: TIEN KRUEGER on 03/19/17330 [Naproxen] , (Reported) Entered as Reported by: TIEN KRUEGER on 03/19/17330 Review of Systems Review of Systems Constitutional: no symptoms reported Eyes: No Symptoms Reported Ears: No Symptoms Reported, Other Nose: no symptoms reported Mouth: see HPI Throat: see HPI Respiratory: no symptoms reported Cardiovascular: no symptoms reported Gastrointestinal: no symptoms reported : No LMP: Aug 06, 2021 Musculoskeletal: no symptoms reported Skin: no symptoms reported Neurological: No Symptoms Reported Hematologic/Lymphatic: No Symptoms Reported Immunological/Allergic: no symptoms reported Past Iifqipc-Gipyjq-Iznpvf Hx Patient Social History Tobacco Use?: Yes Tobacco type used: Cigarettes Smoking Status: Current Everyday Smoker Substance use?: No Alcohol Use?: No Pt feels they are or have been: No Immunizations Up To Date Tetanus Booster (TDap): Unknown Seasonal Allergies Seasonal Allergies: Yes Past Medical History Surgeries: Yes (wisdom teeth removed) Appendectomy Respiratory: Yes Asthma Cardiac: No Neurological: No Last Menstrual Period: Aug 06, 2021 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 0.0oz. 104.996013ey; 34.00 BMI Method:Stated General Appearance: WD/WN, no apparent distress Eyes: bilateral eye normal inspection, bilateral eye PERRL, bilateral eye EOMI Ears: bilateral ear auricle normal Nose: normal inspection; No discharge Mouth/Throat: normal mouth inspection, pharynx normal, dental tenderness (right lower border); No mandibular swelling, No maxillary swelling, No tongue swollen, No tonsillar exudate Neck: full range of motion, normal inspection, lymphadenopathy (R) Cardiovascular: regular rate, rhythm, no murmur Respiratory: lungs clear, normal breath sounds Gastrointestinal: normal bowel sounds, non tender, soft Neurologic/Psychiatric: alert, normal mood/affect, oriented x 3 Skin: normal color, warm/dry Progress/Results/Core Measures Results/Orders Lab Results Laboratory Tests Test 08/20/21 13:30 Range/Units White Blood Count 9.0 4.3-11.0 10^3/uL Red Blood Count 4.88 3.80-5.11 10^6/uL Hemoglobin 13.8 11.5-16.0 g/dL Hematocrit 42 35-52 % Mean Corpuscular Volume 87 80-99 fL Mean Corpuscular Hemoglobin 28 25-34 pg Mean Corpuscular Hemoglobin Concent 33 32-36 g/dL Red Cell Distribution Width 14.7 H 10.0-14.5 % Platelet Count 271 130-400 10^3/uL Mean Platelet Volume 10.7 9.0-12.2 fL Immature Granulocyte % (Auto) 0 % Neutrophils (%) (Auto) 61 42-75 % Lymphocytes (%) (Auto) 27 12-44 % Monocytes (%) (Auto) 6 0-12 % Eosinophils (%) (Auto) 4 0-10 % Basophils (%) (Auto) 1 0-10 % Neutrophils # (Auto) 5.5 1.8-7.8 10^3/uL Lymphocytes # (Auto) 2.5 1.0-4.0 10^3/uL Monocytes # (Auto) 0.6 0.0-1.0 10^3/uL Eosinophils # (Auto) 0.3 0.0-0.3 10^3/uL Basophils # (Auto) 0.1 0.0-0.1 10^3/uL Immature Granulocyte # (Auto) 0.0 0.0-0.1 10^3/uL Sodium Level 139 135-145 MMOL/L Potassium Level 4.2 3.6-5.0 MMOL/L Chloride Level 108 H 98-107 MMOL/L Carbon Dioxide Level 21 21-32 MMOL/L Anion Gap 10 5-14 MMOL/L Blood Urea Nitrogen 7 7-18 MG/DL Creatinine 0.78 0.60-1.30 MG/DL Estimat Glomerular Filtration Rate 81 BUN/Creatinine Ratio 9 Glucose Level 100 70-105 MG/DL Calcium Level 9.3 8.5-10.1 MG/DL Corrected Calcium 9.2 8.5-10.1 MG/DL Total Bilirubin 0.3 0.1-1.0 MG/DL Aspartate Amino Transf (AST/SGOT) 10 5-34 U/L Alanine Aminotransferase (ALT/SGPT) 15 0-55 U/L Alkaline Phosphatase 70 40-136 U/L Total Protein 7.1 6.4-8.2 GM/DL Albumin 4.1 3.2-4.5 GM/DL My Orders Orders - HERMES OSMAN APRN Ed Iv/Invasive Line Start (08/20/21 13:15) Cbc With Automated Diff (08/20/21 13:15) Comprehensive Metabolic Panel (08/20/21 13:15) Fentanyl Inj (Sublimaze Injection) (08/20/21 13:15) Ct Maxillofacial W (08/20/21 13:15) Ketorolac Injection (Toradol Injection) (08/20/21 14:15) Fentanyl Inj (Sublimaze Injection) (08/20/21 14:15) Medications Given in ED Current Medications Medications Dose Ordered Sig/Brielle Route Start Time Stop Time Status Last Admin Dose Admin Fentanyl Citrate 50 mcg ONCE ONCE IVP 08/20/21 13:15 08/20/21 13:17 DC 08/20/21 13:29 50 MCG Iohexol 100 ml ONCE ONCE IV 08/20/21 14:00 08/20/21 14:01 DC 08/20/21 13:57 75 ML Sodium Chloride 100 ml ONCE ONCE IV 08/20/21 14:00 08/20/21 14:01 DC 08/20/21 13:57 80 ML Vital Signs/I&O 08/20/21 12:57 Temp 36.4 Pulse 59 Resp 18 B/P (MAP) 129/83 (98) Pulse Ox 97 Blood Pressure Mean: 98 Progress Progress Note : Progress Note Patient examined and in no acute distress. She is unable to fully open her mouth no significant tenderness when palpated along her right mandible and back region. Will obtain CT maxillofacial and given fentanyl IV push for pain. Labs and CT unremarkable. Feels much improved with Fentanyl. Given Toradol and given an additional Fentanyl 50mcg IVP for severe pain. Discharge plan of care reviewed and she is agreeable with plan. Diagnostic Imaging Diagonstic Imaging: CT Plain Films/CT/US/NM/MRI: facial bones Comments [facility]gy [facility] [place], [place] NAME: KENYA RAYMUNDO [facility] REC#: [id number] PT STATUS: REG ER : 1980 PHYSICIAN: HERMES OSMAN [employer] ADMIT DATE: 08/20/21/ER Draft Date of Exam:08/20/21 CT MAXILLOFACIAL W CLINICAL INDICATION: Patient with right lower tooth pain and infection. EXAM: Axial CT scan of the maxillofacial structures performed with 75 mL of Omnipaque 350 IV contrast. Sagittal and coronal reformatted images were created. Auto Exposure Controls were utilized during the CT exam to meet ALARA standards for radiation dose reduction. COMPARISON: Head CT without contrast dated 08/30/2019. FINDINGS: There are bilateral submandibular and bilateral level II lymph nodes seen which are subcentimeter in short axis and likely reactive. There is no soft tissue abscess or significant fat stranding seen on this exam. There are dental caries involving the buccal aspects of the mandibular right first and second premolar teeth and first molar tooth. There is no adjacent soft tissue swelling or abscess seen in the adjacent soft tissue. Otherwise, there is no bony erosive or destructive process seen. There is complete consolidation of both maxillary sinuses which are small in size. There is lateral deviation of the medial rivero of both maxillary sinuses. This may be seen with silent sinus syndrome. There is mild mucosal thickening involving the ethmoid sinus. There is 5 mm of leftward nasal septal deviation. Orbits and globes are unremarkable. Visualized oral cavity, tongue, and sublingual regions are unremarkable. Visualized portions of the intracranial structures show no significant abnormality. Mastoid air cells are clear as visualized. IMPRESSION: 1: There are dental caries involving three adjacent teeth consisting of the mandibular right first and second premolar teeth and first molar tooth. There is no adjacent soft tissue swelling or abscess. 2: There is paranasal sinus disease. There is complete consolidation of both maxillary sinuses with small antra which may be seen with silent sinus syndrome. 3: There is leftward nasal septal deviation. Dictated on workstation # [id number] Dict: 08/20/21 1359 Trans: 08/20/21 1412 [id number] Interpreted by: KERMIT MCINTOSH MD Electronically signed by: Reviewed: Reviewed by Me Departure Impression Primary Impression: Dental caries Disposition: HOME, SELF-CARE Condition: Improved Departure-Patient Inst. Decision time for Depature: 14:18 Referrals: [facility] (PCP/Family) Primary Care Physician Patient Instructions: Tooth Decay, Adult (DC) Add. Discharge Instructions: Plan: 1. Gargle with lukewarm salt water three times a day. 2. May take Ibuprofen 600mg every 6 hours for pain, take with food. 3. Take Hydrocodone as needed every 6 hours for breakthrough/severe pain. 5. Follow up with your dentist as directed. Continue your Clindamycin as directed. 6. Return for any new, concerning, or worsening symptoms. All discharge instructions reviewed with patient and/or family. Voiced understanding. Scripts Hydrocodone/Acetaminophen (Hydrocodone-Acetamin 5-325 mg) 1 Each Tablet 1 TAB PO Q6H PRN for PAIN-MODERATE (5-7), #12 TAB 0 Refills Prov: HERMES OSMAN [employer] 08/20/21 HERMES OSMAN [employer] Aug 20, 2021 14:21
[2021-08-20 14:47] VITALS: BP 122/74
== END 2021-08-20 14:47 | disposition home or self-care (01) ==
LOC: EDUNIT# 12:16 → ER 12:17
DX: K02.9 Dental caries, unspecified (principal); J45.909 Unspecified asthma, uncomplicated; F41.9 Anxiety disorder, unspecified; F32.9 Major depressive disorder, single episode, unspecified; G89.29 Other chronic pain; M54.9 Dorsalgia, unspecified; F17.210 Nicotine dependence, cigarettes, uncomplicated; Z79.899 Other long term (current) drug therapy; Z79.891 Long term (current) use of opiate analgesic; Z79.52 Long term (current) use of systemic steroids
CPT/HCPCS: 36415; 70487; 80053; 85025

== ENCOUNTER 2022-02-26 04:44 | Emergency (ER) | payer SELFPAY ==
[~2022-02-26] VITALS: Ht 170 cm; Wt 90.7 kg
[2022-02-26 04:52] VITALS: BP 123/68
[2022-02-26] MEDS ORDERED: CEPHALEXIN 250 MG (KEFLEX) CAP PO ONE (05:15)
[2022-02-26] MEDS ORDERED: KETOROLAC 60 MG/2 ML VIAL IM ONE (05:15)
--- NOTE | 2022-02-26 05:15 | ED EENT ---
History of Present Illness General Chief Complaint: Facial Problems Stated Complaint: LEFT SIDE OF FACE SWELLING Nursing Triage Note: Arrives ambulatory w/ spouse c/o left side of face swelling. States that it is starting to swell eye shut. Source: patient Exam Limitations: no limitations History of Present Illness Date Seen by Provider: February 26, 2022 Time Seen by Provider: 04:58 Initial Comments Patient to the ER by private conveyance with 1 to 2 days progressively worsening redness swelling and pain over the left face. She has a tooth on the upper left bicuspid that is tender and she been trying to get into the dentist for the past 6 months unsuccessfully. No fevers chills nausea vomiting or difficulty swallowing. No antibiotics Allergies and Home Medications Allergies Coded Allergies: Penicillins (Verified Allergy, Unknown, 11/25/09) Patient Home Medication List Home Medication List Reviewed: Yes Alprazolam (Alprazolam) 0.5 Mg Tablet, (Reported) Entered as Reported by: TIEN KRUEGER on 03/19/17 0331 Azithromycin (Zithromax) 250 Mg Tablet, 250 MG PO UD Prescribed by: CHARLI BOOTH on 10/25/18 1408 Hydrocodone Bit/Acetaminophen (Vicodin 5-500 Tablet) 1 Each Tablet, 1 EACH PO Q4HR PRN Prescribed by: MILDRED ORO MD on 12/30/09 1750 Hydrocodone Bit/Acetaminophen (Lortab 5 Mg Tablet) 1 Each Tablet, 1-2 TAB PO 4- 6HR PRN for PAIN Prescribed by: DOLORES KELSEY on 03/19/17 0811 Hydrocodone/Acetaminophen (Hydrocodone-Acetamin 5-325 mg) 1 Each Tablet, 1 TAB PO Q6H PRN for PAIN-MODERATE (5-7) Prescribed by: HERMES OSMAN on 08/20/21 1421 Methylprednisolone (Medrol) 4 Mg Tab.ds.pk, 4 MG PO UD Prescribed by: CHARLI BOOTH on 10/25/18 1408 Prednisone (Prednisone) 20 Mg Tab, 40 MG PO DAILY Prescribed by: JOAO ESCOBEDO on 06/19/20 1559 Promethazine/Dextromethorphan (Promethazine-Dm Syrup) 473 Ml Syrup, 5 ML PO Q6H PRN for COUGH Prescribed by: CHARLI BOOTH on 10/25/18 1408 [Buspar] , (Reported) Entered as Reported by: TIEN KRUEGER on 03/19/17330 [Cymbalta] , (Reported) Entered as Reported by: TIEN KRUEGER on 03/19/17330 [Naproxen] , (Reported) Entered as Reported by: TIEN KRUEGER on 03/19/17330 Review of Systems Review of Systems Constitutional: No chills, No diaphoresis Eyes: Denies Blindness, Denies Drainage Ears: Denies Dizziness, Denies Pain Nose: denies congestion, denies pain Mouth: see HPI, pain, swelling Throat: denies pain, denies swelling All Other Systems Reviewed Negative Unless Noted: Yes Past Gjciyps-Amohtg-Zownww Hx Patient Social History Tobacco Use?: Yes Tobacco type used: Cigarettes Smoking Status: Current Everyday Smoker Substance use?: No Alcohol Use?: No Immunizations Up To Date Tetanus Booster (TDap): Unknown Seasonal Allergies Seasonal Allergies: Yes Past Medical History Surgeries: Yes (wisdom teeth removed) Appendectomy Respiratory: Yes Asthma Cardiac: No Neurological: No 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 0.0oz. 104.683181sy; 31.00 BMI Method:Stated General Appearance: WD/WN, mild distress Eyes: bilateral eye normal inspection, bilateral eye PERRL, bilateral eye EOMI Ears: bilateral ear auricle normal, bilateral ear canal normal, bilateral ear TM normal Nose: normal inspection, active bleeding Mouth/Throat: normal mouth inspection, pharynx normal, dental tenderness, other (Left side of the face has some edema, erythema and tenderness to palpation over the maxillary sinus without mass or fluctuance) Neck: full range of motion, supple, normal inspection Cardiovascular: normal peripheral pulses, regular rate, rhythm Progress/Results/Core Measures Results/Orders My Orders Orders - VIPUL,JACEK J Ketorolac Injection (Toradol Injection) (02/26/22 05:15) Cephalexin Capsule (Keflex Capsule) (02/26/22 05:15) Vital Signs/I&O 02/26/22 04:52 Temp 36.6 Pulse 74 Resp 20 B/P (MAP) 123/68 (86) Pulse Ox 97 Blood Pressure Mean: 86 Progress Progress Note : Time: 05:13 Progress Note Toradol and cephalexin. Departure Impression Primary Impression: Cellulitis of face Disposition: HOME, SELF-CARE Condition: Stable Departure-Patient Inst. Decision time for Depature: 05:14 Referrals: [facility] (PCP/Family) Primary Care Physician Patient Instructions: Cellulitis (Skin Infection), Adult ED Add. Discharge Instructions: Cephalexin 500 mg 3 times a day for the next 10 days until swelling and pain goes away. Follow-up with a dentist to explore your tooth. Promptly return to the ER for severe fever, inability to swallow, difficulty breathing or other worrisome symptoms. All discharge instructions reviewed with patient and/or family. Voiced understanding. Scripts Cephalexin (Cephalexin) 500 Mg Tablet 500 MG PO TID for 10 Days, #30 TAB 0 Refills Prov: JACEK MATTHEW 02/26/22 Work/School Note: Work Release Form Date Seen in the Emergency Department: February 26, 2022 Return to Work: February 28, 2022 Restrictions: No Restrictions JACEK MATTHEW February 26, 2022 05:15
[2022-02-26] MEDS ORDERED: CEPH500T PO (05:17)
== END 2022-02-26 05:25 | disposition home or self-care (01) ==
LOC: EDUNIT# 04:44 → ER 04:47
DX: L03.211 Cellulitis of face (principal); F17.210 Nicotine dependence, cigarettes, uncomplicated
CPT/HCPCS: 99284